=== PATIENT | female | born 1950 | race Caucasian/White ===

== ENCOUNTER → 2020-07-30 13:25 | Outpatient (CLI) | payer MEDICARE, SELFPAY ==
--- NOTE | ~2020-07-30 | XR_ITS ---
XR chest 2V 07/30/2020 14:05 Indication: Follow-up infiltrates of the left lung. Procedure: 2 view chest Comparison: 12/26/2018 Findings: Heart size normal. No focal air space disease, pulmonary edema, pleural effusion or suspect ed pneumothorax. Calcified granuloma left lung base. Impression: 1: No acute cardiopulmonary disease. Reviewed, dictated and finalized at location B. Impression: 1: No acute cardiopulmonary disease.
== END ==
PROVIDERS: PCP Family Medicine; Visit Provider Specialist
DX: R93.89 Abnormal findings on diagnostic imaging of other specified body structures (principal)
CPT/HCPCS: 71046

== ENCOUNTER 2022-11-27 12:44 | Outpatient (CLI) | payer MEDICARE, SELFPAY ==
--- NOTE | 2022-11-27 | ECG_ITS ---
Measurements Intervals Douglas Rate: 67 P: -19 VA: 167 QRS: 5 QRSD: 86 T: 31 QT: 387 QTc: 411 Interpretive Statements SINUS RHYTHM NORMAL ECG COMPARED TO ECG 12/27/2018 15:11:25 PROLONGED QT INTERVAL NO LONGER PRESENT Electronically Signed On 11-27-2022 13:37:03 DIRECTOR [employer] by Israel Crooks D.O.
[2022-11-27 14:00] LABS: Anion Gap 7 mmol/L (8-16); Blood Urea Nitrogen 18 mg/dL (7-17); Calcium 9.1 mg/dL (8.4-10.2); Carbon Dioxide 32 mmol/L (22-30); Chloride 103 mmol/L (98-107); Estimated Glomerular Filt Rate 54; Glucose 106 mg/dL (65-110); Potassium 4.1 mmol/L (3.4-5.0); Sodium 142 mmol/L (137-145)
== END 2022-11-27 12:45 | disposition home or self-care (01) ==
LOC: ANHLAB 13:02
PROVIDERS: PCP Family Medicine; Visit Provider Orthopaedic Surgery
DX: Z01.818 Encounter for other preprocedural examination (principal)
CPT/HCPCS: 36415; 80048; 93005

== ENCOUNTER → 2023-06-13 10:50 | Outpatient (CLI) | payer MEDICARE, SELFPAY ==
--- NOTE | ~2023-06-13 | XR_ITS ---
AP and oblique views of the bilateral ribs Clinical History: Pain Findings: No rib fracture is seen. Osseous alignment is anatomic. Lungs are clear, without focal cons olidation or pleural effusion. Cardiomediastinal contour is within normal limits. Soft tissues are un remarkable. Impression: No rib fracture is seen. Reviewed, dictated and finalized at [facility]. Impression: No rib fracture is seen.
== END ==
PROVIDERS: PCP Family Medicine; Visit Provider Nurse Practitioner Family
DX: R07.81 Pleurodynia (principal); W19.XXXA Unspecified fall, initial encounter
CPT/HCPCS: 71110

== ENCOUNTER 2024-07-01 15:45 | Outpatient (CLI) | payer MEDICARE, SELFPAY ==
[2024-07-01 18:51] LABS: Alanine Aminotransferase 37 U/L (6-35); Albumin Level 4.3 g/dL (3.5-5.1); Alkaline Phosphatase 70 U/L (38-126); Anion Gap 9 mmol/L (4-12); Aspartate Amino Transferase 37 U/L (14-36); Bilirubin,Total 0.5 mg/dL (0.2-1.3); Blood Urea Nitrogen 24 mg/dL (7-17); Calcium 9.2 mg/dL (8.4-10.2); Carbon Dioxide 28 mmol/L (22-30); Chloride 100 mmol/L (98-107); Estimated Glomerular Filt Rate > 60; Glucose 91 mg/dL (65-110); Potassium 4.1 mmol/L (3.4-5.0); Sodium 137 mmol/L (137-145)
[2024-07-01 19:38] LABS: Hepatitis C Virus Antibody Negative (Negative)
[2024-07-01 19:57] LABS: Hemoglobin A1C 5.8 % (<5.7)
== END 2024-07-01 15:46 | disposition home or self-care (01) ==
LOC: ANHGOSHLAB 15:46
PROVIDERS: PCP Family Medicine; Visit Provider Family Medicine
DX: E78.5 Hyperlipidemia, unspecified (principal); I10 Essential (primary) hypertension; R73.03 Prediabetes; Z11.59 Encounter for screening for other viral diseases
CPT/HCPCS: 36415; 80053; 83036; 86803

== ENCOUNTER 2025-05-05 13:35 | Outpatient (CLI) | payer MEDICARE, SELFPAY ==
--- NOTE | ~2025-05-05 | MM_ITS ---
EXAMINATION: MM screening yves BI w beata HISTORY: Screening mammogram TECHNIQUE: Craniocaudal and mediolateral oblique 3-D tomosynthesis images were obtained and synthetic 2-D images were generated. CAD analysis was submitted and interpreted. COMPARISON: 05/18/2015, 09/29/2014 BREAST PARENCHYMAL COMPOSITION:Not Dense. There are scattered areas of fibroglandular density. FINDINGS: There is an ovoid mass at the upper, outer right breast mid to posterior depth. Stable coar se calcification left breast. No suspicious abnormality of the left breast. IMPRESSION: Ovoid mass in the upper, outer right breast. Spot compression views and ultrasound are recommended fo r further evaluation. BI-RADS Category 0: Incomplete: Needs additional imaging evaluation. Reviewed, dictated and finalized at location . IMPRESSION: Ovoid mass in the upper, outer right breast. Spot compression views and ultraso und are recommended for further evaluation. BI-RADS Category 0: Incomplete: Needs additional imaging evaluation.
--- NOTE | ~2025-05-05 | DEXA_ITS ---
Bone Density Report Name: JOSE TRONCOSO Age: 74 Sex: Female Ethnicity: White Date of : 1950 Indication: postmenopausal; screening for osteoporosis; prior fracture; Referring Provider: JAKUB CEJA Study: Bone densitometry was performed. Exam Date: May 05, 2025 Accession number: [id number] Bone Density: Region BMD T-score Z-score Classification AP Spine(L1-L4) 0.942 -1.0 1.5 Normal Femoral Neck (Left) 0.710 -1.3 0.9 Osteopenia Total Hip (Left) 0.922 -0.2 1.7 Normal Femoral Neck (Right) 0.781 -0.6 1.5 Normal Total Hip (Right) 0.988 0.4 2.2 Normal Femoral Neck Mean 0.746 -0.9 1.2 Normal Total Hip Mean 0.955 0.1 1.9 Normal World Health Organization criteria for BMD impression classify patients as: Normal (T-score at or above -1.0), Osteopenia (T-score between -1.0 and -2.5), or Osteoporosis (T-score at or below -2.5). 10-year Fracture Risk(1): Major Osteoporotic Fracture 16% Hip Fracture 2.7% Reported Risk Factors: [place] (), Neck BMD=0.710, BMI=26.0, previous fracture (1) FRAX(R) Version 3.08. Fracture probability calculated for an untreated patient. Fracture probability may be lower if the patient has received treatment. Clinical Information Provided by Patient: Has had a low trauma fracture Has used the following medications: multi Patient maximum height was 67 Menopause Age: 44 Drinks caffeinated beverages Onset of menses at age 11 Number of children 2 Impression: The patient has low bone mass, based on the Left Femoral Neck T-score. The patient has risk factors, including: previous fracture. Discussion: BONE DENSITY IS LOW AT ONE OR MORE SKELETAL SITES. This patient's lowest T-score is low at one or more skeletal sites. It meets the World Health Organization's (WHO) criteria for ?low bone mass? (T-score between -1.0 and -2.5). The patient's 10-year risk of fracture as calculated by FRAX is less than the threshold where pharmacological therapy is recommended by the National Osteoporosis Foundation (NOF). However, all treatment decisions require clinical judgment and consideration of individual patient factors, including patient preferences, comorbidities, previous drug use, risk factors not captured in the FRAX model (e.g., frailty, falls, vitamin D deficiency, increased bone turnover, interval significant decline in bone density) and possible under or overestimation of fracture risk by FRAX. The patient should follow a healthful lifestyle (good nutrition with adequate calcium and vitamin D, and appropriate weight-bearing exercise). Follow-Up: Consider repeating this study in 2 to 3 years to reassess this patient's status, or sooner if there is some new clinical indication. Reported by: AYAH on 05/05/2025 2:15:00 PM. Reviewed, dictated and finalized at location A.
== END 2025-05-05 13:36 | disposition home or self-care (01) ==
LOC: CHSIMG 13:37
PROVIDERS: PCP Family Medicine; Visit Provider Family Medicine
DX: Z12.31 Encounter for screening mammogram for malignant neoplasm of breast (principal); Z78.0 Asymptomatic menopausal state; M85.88 Other specified disorders of bone density and structure, other site
CPT/HCPCS: 77063; 77067; 77080

== ENCOUNTER 2025-05-18 09:38 | Outpatient (CLI) | payer MEDICARE, SELFPAY ==
--- NOTE | ~2025-05-18 | MMUS_ITS ---
EXAMINATION: MM diagnostic yves RT w beata, US breast RT limited HISTORY: Follow-up new right breast mass TECHNIQUE: Additional 3-D tomosynthesis images of the right breast were performed and synthetic 2-D i mages were generated. CAD analysis was submitted and interpreted. High resolution Limited right breas t ultrasound was performed. COMPARISON: Comparison to multiple prior studies sequentially, with oldest reviewed study dated 02/03. BREAST PARENCHYMAL COMPOSITION: Not dense: There are scattered areas of fibroglandular density. FINDINGS: MAMMOGRAPHIC FINDINGS: There is a oval-shaped mass in the upper outer quadrant of the right breast, middle third. This mass cannot be replicated on medial lateral view. There are no suspicious calcifications or architectural distortion. ULTRASOUND: Limited right breast ultrasound: Normal heterogeneous echotexture without focal solid or cystic mass. IMPRESSION: 1. Focal oval shaped mass upper outer quadrant of the right breast, middle third without confirmation on medial lateral view or ultrasound. 2. Further evaluation with MRI of the breast with contrast recommended. BI-RADS Category 0: Incomplete: Needs additional imaging evaluation. Reviewed, dictated and finalized at location A. IMPRESSION: 1. Focal oval shaped mass upper outer quadrant of the right breast, middle thir d without confirmation on medial lateral view or ultrasound. 2. Further evaluation with MRI of the breast with contrast recommended. BI-RADS Category 0: Incomplete: Needs additional imaging evaluation.
--- OUTSIDE RECORDS SUMMARY | 2025-05-18 09:41 | XMS_ITS | Data Portability ---
Author Organization [facility] [employer], Main Office Address [address] [place] [address] Assessment Encounter Date Assessment Date Assessment LastModified by Organization Details LastModified Time 01/11/2023 01/11/2023 Patient returns status post trigger finger release left 3rd. Catching is gone she is neurologically she is intact. She has some aching and scarring and stiffness. I told her that was normal. Recommended just some gentle massage with hand cream that should resolve with time. He does have a trigger finger right 3rd which she may need something done on later. 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 I will refill her prednisone Celebrex for prescription drug management discussed. ines Not available 01/11/2023 13:54:27 Plan of Treatment Reminders Order Date Submit Date Provider Last Modified By Organization Details Last Modified Time Details Appointments None recorded. Lab None recorded. Referral None recorded. Procedures None recorded. Surgeries None recorded. Imaging None recorded. Medication Orders Celebrex 200 mg capsule 2022 023 [email or web address] [facility] [facility], [place], [address], 13:53:27 Patient TargetsNo targets recorded. Patient InstructionsNo instructions recorded. Reason for Referral None Reported. Results Created Date Observation Date Name Description Value Unit Range Abnormal Flag Note LastModifiedBy Organization Detail LastModifiedTime 11/29/19 22 XR, hand, 3 or more view No observ ation record ed. [id number] [place] [address], [place], [address], 01/10/2023 10:51:42 Result Notes None recorded. Problems Name Problem SNOMED Code Status Onset Date Resolution Date Notes Provider Name and Address Organization Details Recorded Time Trigger finger of right hand 9251425303369 9101 Active 2021 Not Available [facility] 3 10:45:13 Partial thickness rotator cuff tear 398021046 Active 2019 Not Available [facility] 3 10:45:13 Osteoarthr itis of joint of hand 39591882 Active 2021 Not Available [facility] 3 10:45:13 Pain in right hand 1769581542467 09 Active 2021 Not Available [facility] 3 10:45:13 Acquired trigger finger of left middle finger 0619859363429 02 Active 2021 Not Available [facility] 3 10:45:13 Acquired trigger finger of right middle finger 2431666818782 05 Active 2021 Not Available [facility] 3 10:45:13 Problem Notes None recorded. Medical Equipment None Reported. Medications Name Sig Start Date Stop Date Status Note LastModified by Organization Details LastModified Time celecoxib 200 mg capsule Take 1 capsule by mouth once daily 2022 active Not Available Not Available Not Avai lable atorvastati n 40 mg tablet TAKE 1 TABLET BY MOUTH ONCE DAILY active Not Available Not Available No t Available prednisone 10 mg tablet TAKE 1 TABLET BY MOUTH THREE TIMES DAILY FOR 3 DAYS THEN 1 TABLET TWICE DAILY FOR 2 DAYS THEN 1 TABLET ONCE DAILY FOR 1 DAY 10/18 completed Not Available Not Available Not Available fluconazole 150 mg tablet 12/07 completed Not Available Not Available Not Available hydrocodone 5 mg-acetamin ophen 325 mg tablet Take 1 tablet every 6 hours by oral route. active Not Available Not Available No t Available phenazopyri dine 200 mg tablet 12/07 completed Not Available Not Available Not Available bupivacaine HCl 0.5 % (5 mg/mL) injection solution Take 20 mg by injection route. 12/07 completed Not Available Not Available Not Available fluorouraci l 5 % topical cream APPLY TO FACE/CHES T TWICE A DAY FOR 10-14 DAYS active Not Available Not Available No t Available ciprofloxac in 500 mg tablet TAKE 1 TABLET BY MOUTH EVERY 12 HOURS 12/07 completed Not Available Not Available Not Available sulfamethox azole 800 mg-trimetho prim 160 mg tablet 03/18 completed Not Available Not Available Not Available triamcinolo ne acetonide 0.1 % topical cream APPLY TO THE AFFECTED AREA(S) THREE TIMES DAILY FOR ITCHY RASH 12/07 completed Not Available Not Available Not Available prednisone 10 mg tablets in a dose pack Take 1 tab by mouth, 3 times a day for 3 daysTake 1 tab by mouth 2 times a day for 2 daysTake 1 tab by mouth once a day for 1 day 10/18 completed Not Available Not Available Not Available Kenalog 10 mg/mL suspension for injection In office injection administe red by the provider 12/07 completed [facility]AM[facility]: [phone] Not Available Not Available Not Available cephalexin 500 mg capsule TAKE 1 CAPSULE BY MOUTH TWICE DAILY FOR 7 DAYS 12/07 completed Not Available Not Available Not Available omeprazole 20 mg capsule,del ayed release Take 1 capsule every day by oral route. 2020 active Not Available Not Available Not Avai lable mupirocin 2 % topical ointment APPLY TO THE AFFECTED AREA(S) (RIGHT UPPER BACK) TWICE DAILY FOR 30 DAYS 12/07 completed Not Available Not Available Not Available metoprolol succinate ER 25 mg tablet,exte nded release 24 hr TAKE 1 TABLET BY MOUTH ONCE DAILY IN THE MORNING active Not Available Not Available No t Available naproxen 500 mg tablet Take 1 tablet twice a day by oral route. 12/07 completed Not Available Not Available Not Available esomeprazol e magnesium 20 mg capsule,del ayed release 10/18 completed Not Available Not Available Not Available Asprin Ec Low Dose 81 mg tablet,dhruv yed release Take 1 tablet every day by oral route. 2020 active Not Available Not Available Not Avai lable ezetimibe 10 mg tablet TAKE 1 TABLET BY MOUTH ONCE DAILY active Not Available Not Available No t Available moxifloxaci n 0.5 % eye drops 03/18 completed Not Available Not Available Not Available nitrofurant oin monohydrate /macrocryst als 100 mg capsule TAKE 1 CAPSULE BY MOUTH EVERY 12 HOURS FOR 7 DAYS. MUST ADMINISTE R WITH A MEAL/FOOD 12/07 completed Not Available Not Available Not Available lidocaine (PF) 10 mg/mL (1 %) injection solution In office injection administe red by the provider 12/07 completed [facility]: [phone] Not Available Not Available Not Available Brilinta 90 mg tablet TAKE 1 TABLET BY MOUTH TWICE DAILY 03/18 completed Not Available Not Available Not Available ropivacaine (PF) 5 mg/mL (0.5 %) injection solution Take 10 mg by injection route. 12/07 completed Not Available Not Available Not Available Vitals Date Recorded Body mass index (BMI) Body height Body weight Provider Name and Address Organization Details Last Updated DateTime 11/29/2021 25.4 kg/m2 170.18 cm 86669.96 g Not Available [facility] 01/10/2023 10:42:50 Date Recorded Body mass index (BMI) Body height Body weight Provider Name and Address Organization Details Last Updated DateTime 12/07/2022 25.1 kg/m2 170.18 cm 86979.78 g Not Available [facility] 01/10/2023 10:42:50 Date Recorded Body mass index (BMI) Body height Body weight Provider Name and Address Organization Details Last Updated DateTime 12/21/2022 25.1 kg/m2 170.18 cm 33974.78 g Not Available [facility] 01/10/2023 10:42:50 Date Recorded Body height Body mass index (BMI) Body weight Provider Name and Address Organization Details Last Updated DateTime 01/11/2023 170.18 cm 25.1 kg/m2 40660.78 g Lisa Alvarez, ATC L [place] [facility] [place] [employer] [facility] 01/11/2023 13:35:05 Date Recorded Body mass index (BMI) Body height Body weight Provider Name and Address Organization Details Last Updated DateTime 05/25/2022 25.7 kg/m2 170.18 cm 56134.15 g Not Available [facility] 01/10/2023 10:42:50 Social History None recorded. Functional Status None recorded. Mental Status None recorded. Family History Relationship Description Onset Age of this Age Resolved Age Notes LastModified by Organization Details LastModified Time Father Family history of malignant neoplasm [id number] Not available 01/10/2023 10:42:15 Mother Chronic obstructive pulmonary disease [id number] Not available 01/10/2023 10:42:15 Medical History Condition Response BLINDNESS N KIDNEY STONES N MRSA N CARPAL TUNNEL SYNDROME N LUNG DISEASE/DISORDER N HISTORY OF DRUG ABUSE N RADIATION / CHEMOTHERAPY N COPD N SPORTS INJURY N ANKLE PAIN N BLOOD DISEASES N SCHIZOPHRENIA N SHINGLES N BOWEL PROBLEMS N SHOULDER PAIN N DEPRESSION (INCLUDING POST ) N STROKE/TIA N KNEE PAIN N ULCERS N BENIGN PROSTATIC HYPERPLASIA N OBESITY N GERD/NAUSEA N ANEURYSM N URINARY/BLADDER/KIDNEY PROBLEMS N CORONARY ARTERY DISEASE (CAD) N ADDICTION CONCERNS N USE OF BLOOD THINNERS N SKIN PROBLEMS N EMPHYSEMA N MUSCLE,JOINT OR BONE PROBLEMS N DVT N STOMACH ULCERS N BLOOD CLOTS N USE OF NSAIDS N CONCUSSION OR SPINAL TRAUMA N NEUROPATHY N AIDS/HIV N FRACTURES N ELBOW PAIN N HYPERTENSION N TOURETTE'S N ANXIETY DISORDER N Metal allergy N BLOOD TRANSFUSION N ANEMIA/BLOOD DISORDER N BIPOLAR DISORDER N BRONCHITIS N OSTEOARTHRITIS N TUBERCULOSIS N FOOT PROBLEM N HEART VALVE DISORDERS N ALLERGIES/HAYFEVER N SOFT TISSUE INJURY N INFECTIOUS DISEASE N HEART ARRHYTHMIA N INSOMNIA N RHEUMATOID ARTHRITIS N HIGH CHOLESTEROL / HYPERLIPIDEMIA N EDEMA N CHRONIC PAIN SYNDROME N CAROTID BLOCKAGE N BACK / NECK PROBLEMS N HAVE YOU BEEN HOSPITALIZED OR SEEN IN [facility] ER IN THE PAST YEAR ? N BURSITIS N HERNIATED DISC N DIALYSIS N FIBROMYALGIA N OSTEOPOROSIS N ARTHRITIS Y NO SIGNIFICANT PAST MEDICAL HISTORY N PERIPHERAL NEUROPATHY N DIABETES, TYPE N HEARTBURN / REFLUX N HEPATITIS / LIVER DISEASE N GOUT N SLEEP DISORDER N ALZHEIMER'S DISEASE N HERPES N SEIZURES/EPILEPSY N HEADACHES/MIGRAINES N VASCULAR DISEASE N HIP PAIN N Blood Disorder N DIZZINESS N HEAD TRAUMA OR INJURY N HEART DISEASE/HEART PROBLEMS Y MULTIPLE SCLEROSIS N CARDIAC ARRHYTHMIA N CANCER: SPECIFY N ANESTHESIA COMPLICATIONS N ATRIAL FIBRILLATION N AUTOIMMUNE DISEASE N Gynecological HistoryNo gynecological history recorded. Obstetrics History GPAL:G 0 P 0 0 0 0 Past Encounters Encounter ID Performer Location Encounter Start Date Encounter Closed Date Diagnosis/Indication Diagnosis SNOMED-CT Code Diagnosis ICD10 Code Diagnosis Note [id number] Nasir Romero MD [facility] [place] [address] [place] [address] 10/18/2021 00:00:00 10/18/2021 15:10:00 [id number] Nasir Romero MD [facility] [place] [address] [place] [address] 11/29/2021 00:00:00 11/29/2021 16:13:19 [id number] Nasir Romero MD [facility] [place] [address] [place] [address] 05/25/2022 00:00:00 05/25/2022 14:03:45 [id number] Nasir Romero MD [facility] [place] [address] [place] [address] 12/07/2022 00:00:00 12/07/2022 11:22:16 [id number] Nasir Romero MD [facility] [place] [address] [place] [address] 12/21/2022 00:00:00 12/21/2022 11:30:44 [id number] Nasir Romero MD [facility] [place] [address] [place] [address] 01/11/2023 13:30:04 01/11/2023 15:06:56 Trigger finger of right hand 8940460795 3098518 M65.332 Pain in right hand 09644 03088 07679 M79.641 Acquired t marble installer finger of left middle finger 7712481960 50843 M65.332 Acquired t marble installer finger of right middle finger 6105512067 06304 M65.331 Osteoarthr itis of joint of hand 17507141 M19.049 Health Concerns Section Related Observation LastModified by Organization Detai ls LastModified Time None Recorded Concern Status LastModified by Organization Details LastModified Time None Recorded Advance Directives Directive None Recorded Payers Insurance Date Sequence Insurance Name Policy Number Policy Cohen Covered Member ID Cohen Member ID Guarantor Name 01/16/2023 1 [employer] (MEDICARE REPLACEMENT/ ADVANTAGE - PPO) [id number] Sindy L Fourdyce [id number] Sindy L Fourdyce 01/16/2023 1 [employer] (PPO) [id number] Sindy L Fourdyce [id number] Sindy L Fourdyce Notes Date Note Type Note Provider Name and Address Organization Details Recorded Time 01/11/2023 text/html Patient returns status post trigger finger left base left 3rd. She remains symptomatic in terms of scarring and inflammation but no triggering and no numbness or tingling. Nasir Romero MD [address] [facility] [place] [address], [place], [address], [facility] 01/11/2023 13:54:42 OBGyn Episode No OBEpisode recorded.
--- OUTSIDE RECORDS SUMMARY | 2025-05-18 09:41 | XMS_ITS | Encounter Summary ---
Author Organization [facility] Address [address] [place] [address] Care Team Providers Care Transportation Associate Name Role Phone Aamir Mishra MD Primary Care Provider Encounter Details Date Type Department Care Team (Late st Contact Info) Description 07/20/2022 Lab Requisition [facility] [address] [place] [address] Ben Garland MD [address] [facility] [place] [address] Social History Tobacco Use Types Packs/Day Years Used Date Smoking Tobacco: Former Cigarettes 0.5 10 Smokeless Tobacco: Never Comments:Passive smoke expos ure from mother as well Comments No Sex and Gender Information Value Date Recorded Sex Assigned at Not on file 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 Gender Identity Not on file Sexual Orientation Not on file documented as of this encounter Plan of Treatment Not on file documented as of this encounter Procedures Procedure Name Priority Date/Time Associated Diagnosis Comments DERMATOPATHOLOGY Routine 07/20/2022 12:0 0 AM CDT documented in this encounter Results * DERMATOPATHOLOGY (07/20/2022 12:00 AM CDT) Case Report Dermatopathology Report Case: [id number] Authorizing Provider: Ben Garland MD Collected: 07/20/2022 12:00 AM Ordering Location: [facility] Received: 07/20/2022 04:12 PM Pathologist: Savanna Interiano MD Specimen: Skin, right upper back 2 2:41 PM [facility] DER[facility]ORAT[facility] Final Diagnosis Specimen A. 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 The 12 to 6 o'clock margin is inked green. The 6 o'clock to 12 o'clock margin is inked black. The 12 o'clock tip is submitted in cassette 1. The 6 o'clock tip is submitted in cassette 2. The remainder of the ellipse is serially sectioned and submitted in cassettes 3-6. Jar 0. 2 2:41 PM [facility] DERMATOPATHOLOGY [facility]ORAT[facility] Microscopic Description Specimen A. SKIN, right upper back: There is a proliferation of melanocytes in the epidermis, with single cells predominating, distributed in an irregular pattern. This lesion is not present at the margin of the specimen. There are fibroblasts and collagen bundles oriented parallel to the skin surface with elongated blood vessels, some of which are oriented perpendicular to the skin surface. 2 2:41 PM [facility] DERMATOPATHOLOGY [facility]ORATORY Disclaimer An external and internal positive and negative controls are appropriate for the histochemical, immunohistochemical and immunofluorescence stain(s) in this case (if any), except where stated explicitly. The performance characteristics of the stain(s) cited in this report were developed and its performance characteristic determined by the Dermatopathology Laboratory at [facility], directed by Dr. Konrad Chandler. These tests need not be, and therefore are not, approved by the [place] Food and Drug Administration. The tests are used for clinical purposes. Billing Codes Specimen Charges Stain Charges 82637 1 2 2:41 PM [facility] DERMATOPATHOLOGY LABORATORY Embedded Images 2 2:41 PM CDT DERMATOPATHOLOGY LABORATORY Pathology/Cytolog y TISSUE SPECIMEN FROM SKIN / Unknown 07/20/2022 07/20/2022 4:12 PM CDT us Ben Garland MD LAB - PATHOLOGY/CYTOLOGY ORDER AMY Final Result DERMATOPATHOLOGY LABORATORY [facility] - Department of Dermatology [facility] [address] [place] [address], [address] [phone] documented in this encounter Visit Diagnoses Not on filedocumented in this encounter Care Teams Transportation Associate Relationship Specialty Start Date End Date Aamir Mishra MD [address] [place] [address] PCP - General Family Medicine 05/03/22 documented as of this encounter
--- OUTSIDE RECORDS SUMMARY | 2025-05-18 09:42 | XMS_ITS | Encounter Summary ---
Author Organization [facility] Address [address] [place] [address] Care Team Providers Care Outsole Compressor Name Role Phone Aamir Mishra MD Primary Care Provider Encounter Details Date Type Department Care Team (Late st Contact Info) Description 06/02/2022 Lab Requisition [facility] [address] [facility] [place] [id number] Ben Garland MD [address] [facility] [place] [address] Social History Tobacco Use Types Packs/Day Years Used Date Smoking Tobacco: Former Cigarettes 0.5 10 Smokeless Tobacco: Never Comments:Passive smoke expos ure from mother as well Comments No Sex and Gender Information Value Date Recorded Sex Assigned at Not on file 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 Gender Identity Not on file Sexual Orientation Not on file documented as of this encounter Plan of Treatment Not on file documented as of this encounter Procedures Procedure Name Priority Date/Time Associated Diagnosis Comments DERMATOPATHOLOGY Routine 06/01/2022 12:0 0 AM CDT documented in this encounter Results * DERMATOPATHOLOGY (06/01/2022 12:00 AM CDT) Case Report Dermatopathology Report Case: [id number] Authorizing Provider: Ben Garland MD Collected: 06/01/2022 12:00 AM Ordering Location: [facility] Received: 06/02/2022 08:39 AM Pathologist: Chai Chandler MD Specimens: A) - Skin, right upper back B) - Skin, right posterior shoulder 2 5:05 PM CDT DERMATOPATHOLOGY LABORATORY Final Diagnosis Specimen A. 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 SKIN, right posterior shoulder: BASAL CELL CARCINOMA, NODULAR TYPE (C44.612) 2 5:05 PM CDT DERMATOPATHOLOGY LABORATORY at 1705 CDT Clinical History A: Lentigo vs. Lentigo Maligna. Path# [id number] B: BCCA. Path# [id number] 2 5:05 PM CDT DERMATOPATHOLOGY LABORATORY Gross Description Specimen A: Received is one formalin filled container labeled with the patient's name and designated right upper back. The specimen consists of a shave biopsy measuring [id number] and another piece of tissue measuring 8l3g3wt. Jar 0. Specimen B: Received is one formalin filled container labeled with the patient's name and designated right posterior shoulder. The specimen consists of a shave biopsy measuring 2k2x2hy. Jar 0. 2 5:05 PM CDT DERMATOPATHOLOGY LABORATORY Microscopic Description Specimen A. SKIN, right upper back: There is a proliferation of melanocytes distributed in an irregular pattern, singly and in nests, at all levels of the epidermis. MART-1/Melan-A highlights the pagetoid spread. This lesion is present at the margin of the specimen. Specimen B. SKIN, right posterior shoulder: Within the dermis there are aggregates of basaloid cells with a high nuclear to cytoplasmic ratio and peripheral palisading. 2 5:05 PM CDT DERMATOPATHOLOGY LABORATORY Disclaimer An external and internal positive and negative controls are appropriate for the histochemical, immunohistochemical and immunofluorescence stain(s) in this case (if any), except where stated explicitly. The performance characteristics of the stain(s) cited in this report were developed and its performance characteristic determined by the Dermatopathology Laboratory at [facility], directed by Dr. Konrad Chandler. These tests need not be, and therefore are not, approved by the [place] Food and Drug Administration. The tests are used for clinical purposes. Billing Codes Specimen Charges Stain Charges 87943 98361 1 1 16281 1 2 5:05 PM CDT DERMATOPATHOLOGY LABORATORY Embedded Images 2 5:05 PM CDT DERMATOPATHOLOGY LABORATORY Pathology/Cytology TISSUE SPECIMEN FROM SKIN / Unknown 06/01/2022 06/02/2022 8:39 AM CDT Miscellaneous samples (specimen) TISSUE SPECIMEN FROM SKIN / Unknown 06/01/2022 06/02/2022 8:39 AM CDT us Ben Garland MD LAB - PATHOLOGY/CYTOLOGY ORDER AMY Final Result DERMATOPATHOLOGY LABORATORY [facility] - Department of Dermatology [facility] Special[facility] Medicine [address] [place] [address] [phone] documented in this encounter Visit Diagnoses Not on filedocumented in this encounter Care Teams Outsole Compressor Relationship Specialty Start Date End Date Aamir Mishra MD [address] [place] [address] PCP - General Family Medicine 05/03/22 documented as of this encounter
--- OUTSIDE RECORDS SUMMARY | 2025-05-18 09:42 | XMS_ITS | Clinical Summary ---
Author Organization [email or web address] Address [address] [place] [address] Care Team Providers Care Verification Clerk Name Role Phone Aamir Mishra MD Primary Care Provider Source Comments [email or web address],non-owned Affiliates and Associated Physician Practices is amultiple site organization consisting of ambulatory clinics and hospital sitesin [place], [place], [place] and [place]. This disclosure is being madepursuant to the Care Everywhere program and may not contain all information available regarding this patient. Last updated 18.[employer] [email or web address] Allergies No known active allergies Medications * Be aware that medications may not be up to date on this document. Alwaysverify current medications with the patient. 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 Gender Identity Not on file Sexual Orientation Not on file Last Filed Vital Signs Vital Sign Reading Time Taken Comments Blood Pressure 122/72 03/07/2018 10:03 AM CDT Pulse 68 03/07/2018 10:03 AM CDT Temperature 37.1 C (98.7 F) 03/07/2018 10:03 AM CDT Respiratory Rate 16 03/07/2018 10:0 3 AM CDT Oxygen Saturation 97% 03/07/2018 10: 03 AM CDT range between 96-98 Inhaled Oxygen Concentration - - Weight 72.6 kg (160 lb) 03/07/2018 10:0 3 AM CDT Height 170.2 cm (5' 7) 03/07/2018 10:0 3 AM CDT Body Mass Index 25.06 03/07/2018 10:03 AM CDT Plan of Treatment Health Maintenance Due Date Last Done Comments COLON MONITORING 1950 COLONOSCOPY - COLON CA SCREENING 1949 CT COLONOGRAPHY - COLON CA SCREENING 1950 FIT - COLON CA SCREENING 1950 FLEX SIG - COLON CA SCREENING 1950 HEPATITIS C SCREENING 07/12/1967 DTAP/TDAP/TD VACCINES (1 - Tdap) 1968 PNEUMOCOCCAL VACCINE 50+ (1 of 1 - PCV) 1999 ZOSTER VACCINE (1 of 2) 1999 COLOGUARD (AGES 45-75) - COLON CA SCREENING 10/12/2023 10/12/2020 Colorectal Cancer Screening 10/12/2023 MAMMOGRAM 05/03/2024 05/03/2022, 03/0 06/2019, 03/02/2017, Additional history exists COVID-19 VACCINE ( season) 2024 Respiratory Syncytial Virus (RSV) Vaccine Pt: or over 60 yrs (1 - 1-dose 75+ series) 2024 DEPRESSION SCREENING 11/12/2024 MEDICARE AWV CALENDAR YEAR 2024 SCREENING FOR DIABETES 11/17/2024 11/17/2021, 2018 INFLUENZA VACCINE (Season Ended) 2025 LIPID TESTING 11/17/2026 11/17/2021, 01/10/2019 BONE DENSITY TESTING Completed 05/03/2022, 01/18/20 19 HEPATITIS B VACCINE Aged Out No longe r eligible based on patient's age to complete this topic HIB VACCINE Aged Out No longer eligi ble based on patient's age to complete this topic HPV VACCINE Aged Out No longer eligi ble based on patient's age to complete this topic MENINGOCOCCAL (Group B) VACCINE SHARED DECISION-MAKING Aged Out No longer eligible based on patient's age to complete this topic MENINGOCOCCAL GROUPS A/C/Y/W VACCINE Aged Out No longer eligible based on patient's age to complete this topic Procedures Procedure Name Priority Date/Time Associated Diagnosis Comments DEXA BONE DENSITY AXIAL SKELETON Routine 05/03/2022 11:13 AM CDT Asymptomatic menopausal state MAMMO BILAT SCREENING W SHAHANA Routine 05/03/2022 10:46 AM CDT Visit for screening mammogram from Last 3 Months or Most Recently Relevant to Health Maintenance Results * DEXA BONE DENSITY AXIAL SKELETON (05/03/2022 11:13 AM CDT) Anatomical Region Laterality Modality Nuclear Medicine 05/03/2022 11:3 7 AM CDT Impressions 05/03/2022 11:38 AM CDT IMPRESSION: Osteopenia of the lumbar spine and left hip. Normal bone mineral density of the right hip. WORLD HEALTH ORGANIZATION DEFINITIONS NORMAL= T-Score at or above -1.0 SD OSTEOPENIA = T-Score between -1 and -2.5 SD OSTEOPOROSIS = T-Score at or below -2.5 SD > Interpreting Provider: Han Bray DO on 05/03/2022 11:38 AM Narrative 05/03/2022 11:38 AM CDT BONE MINERAL DENSITY STUDY: INDICATION: 71-year-old for osteoporosis screening. COMPARISON: Prior study dated 01/17/2019 FINDINGS: The mean bone mineral content of the lumbar spine is 1.037 g/cm2. The T-score is -1.2 consistent with osteopenia. The mean bone mineral content of the left femoral neck is 0.881 g/cm2. The T-score is -1.1 consistent with osteopenia. The mean bone mineral content of the left total hip is 0.969 g/cm2. The T-score is -0.3 consistent with normal bone mineral density. The mean bone mineral content of the right femoral neck is 0.924 g/cm2. The T-score is -0.8 consistent with normal bone mineral density. The mean bone mineral content of the right total hip is 1.029 g/cm2. The T-score is 0.2 consistent with normal bone mineral density. FRAX 10 year fracture risk Major osteoporotic fracture: 9.8% Hip fracture: 1.3% Procedure Note Han Bray DO - 05/03/2022 BONE MINERAL DENSITY STUDY: INDICATION: 71-year-old for osteoporosis screening. COMPARISON: Prior study dated 01/17/2019 FINDINGS: The mean bone mineral content of the lumbar spine is 1.037 g/cm2. The T-score is -1.2 consistent with osteopenia. The mean bone mineral content of the left femoral neck is 0.881 g/cm2. The T-score is -1.1 consistent with osteopenia. The mean bone mineral content of the left total hip is 0.969 g/cm2.The T-score is -0.3 consistent with normal bone mineral density. The mean bone mineral content of the right femoral neck is 0.924 g/cm2. The T-score is -0.8 consistent with normal bone mineral density. The mean bone mineral content of the right total hip is 1.029 g/cm2.The T-score is 0.2 consistent with normal bone mineral density. FRAX 10 year fracture risk Major osteoporotic fracture: 9.8% Hip fracture: 1.3% IMPRESSION: Osteopenia of the lumbar spine and left hip. Normal bone mineral density of the right hip. WORLD HEALTH ORGANIZATION DEFINITIONS NORMAL= T-Score at or above -1.0 SD OSTEOPENIA = T-Score between -1 and -2.5 SD OSTEOPOROSIS = T-Score at or below -2.5 SD > Interpreting Provider: Han Bray DO on 05/03/2022 11:38 AM Ally Monsivais SENIOR PROJECT ARCHITECT-BREAD WRAPPER OPERATOR DEXA ORDERABLES Final R esult * MAMMO BILAT SCREENING W SHAHANA (05/03/2022 10:46 AM CDT) Anatomical Region Laterality Modality Breast Bilateral Mammography 05/03/2022 1:16 PM CDT Impressions 05/03/2022 1:19 PM CDT Annual screening mammography is recommended. OVERALL FINAL ASSESSMENT: BI-RADS CATEGORY 1: NEGATIVE. *Reading Radiologist: Herber Dickey on 05/03/2022 at 1:19 PM Narrative 05/03/2022 1:19 PM CDT EXAMINATION: BILATERAL DIGITAL SCREENING MAMMOGRAM AND BILATERAL BREAST TOMOSYNTHESIS HISTORY: Screening. COMPARISON: January 17, 2019. TECHNIQUE: BILATERAL digital breast tomosynthesis (DBT) and synthetic 2D digital mammogram images were obtained (bilateral craniocaudal and mediolateral oblique projections) including computer aided detection (CAD.) BREAST PARENCHYMAL COMPOSITION:Category B: There are scattered areas of fibroglandular density. MAMMOGRAM FINDINGS: There is no suspicious finding in either breast. Aamir Mishra MD MAMMO ORDERABLES Final Result from Last 3 Months or Most Recently Relevant to Health Maintenance Insurance [id number] MANAGED MEDICARE ADV Member Subscriber Plan / Payer ( fective 2016-Present) Name:Brandy Javierne Relation to Subscriber:Self Name:Sindy Javier Payer ID:[id number] (NAIC) Type:Medicare-JoKno Care Address: [address] MANAGED MEDICARE ADV Care Teams Verification Clerk Relationship Specialty Start Date End Date Aamir Mishra MD [address] [place] [address] PCP - General Family Medicine 05/03/22
--- OUTSIDE RECORDS SUMMARY | 2025-05-18 09:42 | XMS_ITS | Clinical Summary ---
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 Name Role Phone Unavailable Primary Care Provider Unavailabl e Social History Tobacco Use Types Packs/Day Years Used Date Smoking Tobacco: Never Assessed Comments Unknown Sex and Gender Information Value Date Recorded Sex Assigned at Not on file Legal Sex Female 5:48 PM CDT Gender Identity Not on file Sexual Orientation Not on file Plan of Treatment Health Maintenance Due Date Last Done Comments Colorectal Cancer Screening Colonoscopy (10 Years) 1950 Hepatitis C 1967 DTaP, Tdap and Td Vaccines ( 1 - Tdap) 1968 Pneumococcal Vaccine: 50+ Ye ars (1 of 1 - PCV) 1999 Zoster Vaccines (1 of 2) 1999 Dexa Scan (General) 2014 COVID-19 Vaccine ( - 2023-2 5 season) 2024 RSV Immunization or 60+ Years (1 - 1-dose 75+ series) 2024 Meningococcal B Vaccine Aged Out No l onger eligible based on patient's age to complete this topic Meningococcal Vaccine Aged Out No dimitri beata eligible based on patient's age to complete this topic RSV Immunizations Under 20 Months Aged Out No longer eligible based on patient's age to complete this topic
== END 2025-05-18 09:39 | disposition home or self-care (01) ==
LOC: CHSIMG 09:39
PROVIDERS: PCP Family Medicine; Visit Provider Family Medicine
DX: R92.8 Other abnormal and inconclusive findings on diagnostic imaging of breast (principal)
CPT/HCPCS: 76642; 77061; 77065; G0279

== ENCOUNTER 2025-09-01 08:20 | Outpatient (CLI) | payer MEDICARE, SELFPAY ==
--- NOTE | ~2025-09-01 | MM_ITS ---
AutoText: MM stereotactic specimen RT, MM stereotactic bx RT CLINICAL HISTORY: 75-year-old female with suspicious right breast mass with no MRI or ultrasound correlate, presents for stereotactic core needle biopsy procedure. PROCEDURE: Stereotactic breast biopsy. The patient was brought into the stereotactic suite. A time-out procedure was performed. Preliminary images of the right breast were obtained to localize the mass. The area was then prepped and draped in the usual sterile fashion. 1% lidocaine was administered to the superficial soft tissues and 1% lidocaine without epinephrine was administered to the deeper soft tissues for local anesthesia. A essie was made in the skin and the 9 gauge Mammotome biopsy needle was inserted through the essie and localized to the mass with confirmation by mammography. Multiple biopsy specimens were obtained. A microclip was placed in the biopsy site at the end of the procedure. Pressure was held at the site of biopsy and entry site for the needle until hemostasis was achieved. The patient tolerated the procedure well with no immediate post procedure complications. The biopsy specimens were sent to pathology for evaluation. Mammogram of the right breast in the craniocaudal and true lateral projections demonstrate the microclip in the biopsy site. IMPRESSION: Technically successful stereotactic biopsy of right breast mass. The patient tolerated the procedure well with no immediate post procedure complications. Reviewed, dictated and finalized at location B. IMPRESSION: Technically successful stereotactic biopsy of right breast mass. Th e patient tolerated the procedure well with no immediate post procedure complic ations.
--- NOTE | 2025-09-01 11:11 | S_PTH ---
PATIENT: Sindy Javier LOC: [facility] U#:[id number] AGE/SX: 75/F ROOM: RE09/01/[address]: Anika Cortés MD : 1950 BED: DIS: 09/01/2025 SPEC #: [id number] RECD: 09/01/25 11:34 STATUS: ADDISON REBeverly #: [id number] FAUSTO: 09/01/25 11:[address]: Anika Cortés DEPT: [facility] Surgical RECD BY: Kenneth Simpson ENTERED: 09/01/25 11:47 SP TYPE: Surgical OTHR DR: Aamir Mishra MD Tissues: A - Breast Biopsy B - Breast Biopsy C - Breast Biopsy D - Breast Biopsy E - Breast Biopsy F - Breast Biopsy G - Breast Biopsy H - Breast Biopsy I - Breast Biopsy J - Breast Biopsy K - Breast Biopsy L - Breast Biopsy Procedures: P63 Hematoxylin and Eosin Stain Estrogen Receptor Immuno Progestogen Receptor immuno Gross and Microscopic Level 4 CK 5
== END 2025-09-01 08:21 | disposition home or self-care (01) ==
LOC: ANHFOHIMG 08:20
PROVIDERS: PCP Family Medicine; Visit Provider Surgery
DX: R92.8 Other abnormal and inconclusive findings on diagnostic imaging of breast (principal); R92.1 Mammographic calcification found on diagnostic imaging of breast; D05.11 Intraductal carcinoma in situ of right breast; N63.11 Unspecified lump in the right breast, upper outer quadrant; N63.10 Unspecified lump in the right breast, unspecified quadrant
CPT/HCPCS: 19081; 88305; 88342

== ENCOUNTER 2025-09-17 07:16 | Outpatient (CLI) | payer MEDICARE, SELFPAY ==
--- NOTE | ~2025-09-17 | MM_ITS ---
EXAMINATION: MM post biopsy diagnostic RT CLINICAL HISTORY: 75 year old female with biopsy-proven RIGHT breast Malignant lesion containing Cofield Laz clip diagnosed at stereotactic guided core needle biopsy on 09/01/2025. Patient presents for ultrasound guided Magseed localization of the clip within the Malignant lesion in the Upper outer 10:00 right breast. After informed consent was obtained, the patient was brought into the ultrasound room. A time-out procedure was performed. Preliminary images of the right breast were obtained to localize the target. A needle was then placed into the breast and ultrasound images were obtained to confirm position of the needle. The Magseed clip deployed immediately adjacent to the biopsy clip. Postprocedure mammogram of the right breast showed the Magseed in good position. IMPRESSION: Successful ultrasound-guided Magseed localization of right breast cancer. The patient tolerated the procedure well with no immediate post procedure complications. Reviewed, dictated and finalized at location B. RICT RESOURCE OFFICER IMPRESSION: Successful ultrasound-guided Magseed localization of right breast c ancer. The patient tolerated the procedure well with no immediate post procedu re complications.
--- OUTSIDE RECORDS SUMMARY | 2025-09-17 16:20 | XMS_ITS | Clinical Summary ---
Author Organization [facility] Address [facility] [place] [address] Care Team Providers Care Flag Maker Name Role Phone Unavailable Primary Care Provider Unavailabl e Social History Tobacco Use Types Packs/Day Years Used Date Smoking Tobacco: Never Assessed Comments Unknown Sex and Gender Information Value Date Recorded Sex Assigned at Not on file Legal Sex Female 5:48 PM CDT Gender Identity Not on file Sexual Orientation Not on file Plan of Treatment Health Maintenance Due Date Last Done Comments Hepatitis C 1967 DTaP, Tdap and Td Vaccines ( 1 - Tdap) 1968 Pneumococcal Vaccine: 50+ Ye ars (1 of 1 - PCV) 1999 Zoster Vaccines (1 of 2) 1999 Dexa Scan (General) 2014 RSV Immunization or 60+ Years (1 - 1-dose 75+ series) 2024 COVID-19 Vaccine (2024-2 6 season) 2025 Influenza Adult (#1) 2025 Hepatitis A Vaccines Aged Out No long er eligible based on patient's age to complete this topic Meningococcal B Vaccine Aged Out No l onger eligible based on patient's age to complete this topic Meningococcal Vaccine Aged Out No dimitri beata eligible based on patient's age to complete this topic RSV Immunizations Under 20 Months Aged Out No longer eligible based on patient's age to complete this topic
--- OUTSIDE RECORDS SUMMARY | 2025-09-17 16:20 | XMS_ITS | Encounter Summary ---
Author Organization [facility] Address [address] [facility] [place] [address] Care Team Providers Care Director Of Child Welfare Services Name Role Phone Aamir Mishra MD Primary Care Provider Encounter Details Date Type Department Care Team (Late st Contact Info) Description 07/20/2022 Lab Requisition [facility] [address] [facility] [place] [address] Ben Garland MD [address] [facility] [place] [address] Social History Tobacco Use Types Packs/Day Years Used Date Smoking Tobacco: Former Cigarettes 0.5 10 Smokeless Tobacco: Never Comments:Passive smoke expos ure from mother as well Comments No Sex and Gender Information Value Date Recorded Sex Assigned at Not on file 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 Gender Identity Not on file Sexual Orientation Not on file documented as of this encounter Plan of Treatment Not on file documented as of this encounter Procedures Procedure Name Priority Date/Time Associated Diagnosis Comments DERMATOPATHOLOGY Routine 07/20/2022 12:0 0 AM CDT documented in this encounter Results * DERMATOPATHOLOGY (07/20/2022 12:00 AM CDT) Case Report Dermatopathology Report Case: [id number] Authorizing Provider: Ben Garland MD Collected: 07/20/2022 12:00 AM Ordering Location: [facility] Received: 07/20/2022 04:12 PM Pathologist: Savanna Interiano MD Specimen: Skin, right upper back 2 2:41 PM [facility] Final Diagnosis Specimen A. SKIN, right upper back: MELANOMA IN SITU (D03.59) NOT PRESENT AT MARGIN DERMAL SCAR (L90.5) 2 2:41 PM [facility] at 1441 CDT Clinical History Biopsy proven MM in situ, Check margins.Path#[id number] 2 2:41 PM [facility] Gross Description Specimen A: Received is one formalin filled container labeled with the patient's name and designated right upper back.The specimen consists of an ellipse measuring [id number] mm and is oriented with the suture/notch [...] cassettes 3-6. Jar 0. 2 2:41 PM [facility] Microscopic Description Specimen A. SKIN, [...] to the skin surface. 2 2:41 PM [facility] Disclaimer An external and internal positive and negative controls are appropriate for the histochemical, immunohistochemical and immunofluorescence stain(s) in this case (if any), except where stated explicitly. The performance characteristics of the stain(s) cited in this report were developed and its performance characteristic determined by the Dermatopathology Laboratory at [facility], directed by Dr. Konrad Chandler. These tests need not be, and therefore are not, approved by the [place] Food and Drug Administration. The tests are used for clinical purposes. Billing Codes Specimen Charges Stain Charges 49827 1 2 2:41 PM CDT DERMATOPATHOLOGY LABORATORY Embedded Images 2:41 PM CDT DERMATOPATHOLOGY LABORATORY Pathology/Cytolog y TISSUE SPECIMEN FROM SKIN / Unknown 07/20/2022 07/20/2022 4:12 PM CDT us Ben Garland MD LAB - PATHOLOGY/CYTOLOGY ORDER AMY Final Result DERMATOPATHOLOGY LABORATORY [facility] - Department of Dermatology Specialized Medicine [address] [place] [address], [address] [phone] documented in this encounter Visit Diagnoses Not on filedocumented in this encounter Care Teams Director Of Child Welfare Services Relationship Specialty Start Date End Date Aamir Mishra MD [address] [place] [address] PCP - General Family Medicine 05/03/22 documented as of this encounter
--- OUTSIDE RECORDS SUMMARY | 2025-09-17 16:20 | XMS_ITS | Encounter Summary ---
Author Organization [facility] Address [address] [place] [address] Care Team Providers Care Sash Repairer Name Role Phone Aamir Mishra MD Primary Care Provider Encounter Details Date Type Department Care Team (Late st Contact Info) Description 06/02/2022 Lab Requisition [facility] DermPath Lab [address] [place] [address] Ben Garland MD [address] [facility] [address] Social History Tobacco Use Types Packs/Day Years Used Date Smoking Tobacco: Former Cigarettes 0.5 10 Smokeless Tobacco: Never Comments:Passive smoke expos ure from mother as well Comments No Sex and Gender Information Value Date Recorded Sex Assigned at Not on file 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.] History A: Lentigo vs. Lentigo Maligna. Path# [id number] B: BCCA. Path# [id number] 2 5:05 PM CDT DERMATOPATHOLOGY LABORATORY Gross Description Specimen A: Received is one formalin filled container labeled with the patient's name and designated right upper back. The specimen consists of a shave biopsy measuring [id number] and another piece of tissue measuring [id number]. Jar 0. Specimen B: Received is one formalin filled container labeled with the patient's name and designated right posterior shoulder. The specimen consists of a shave biopsy measuring [id number]. Jar 0. 2 5:05 PM CDT DERMATOPATHOLOGY [...] characteristic determined by the Dermatopathology Laboratory at [facility], directed by Dr. Konrad Chandler. These tests need not be, and therefore are not, approved by the [place] Food and Drug Administration. The tests are used for clinical purposes. Billing Codes Specimen Charges Stain Charges 05416 64351 1 1 90649 1 2 5:05 PM CDT DERMATOPATHOLOGY LABORATORY Embedded Images 2 5:05 PM CDT DERMATOPATHOLOGY LABORATORY Pathology/Cytology TISSUE SPECIMEN FROM SKIN / Unknown 06/01/2022 06/02/2022 8:39 AM CDT Miscellaneous samples (specimen) TISSUE SPECIMEN FROM SKIN / Unknown 06/01/2022 06/02/2022 8:39 AM CDT us Ben Garland MD LAB - PATHOLOGY/CYTOLOGY ORDER AMY Final Result DERMATOPATHOLOGY LABORATORY [facility] Department of Dermatology [facility] Medicine [address] [place] [address], [address] [phone] documented in this encounter Visit Diagnoses Not on filedocumented in this encounter Care Teams Sash Repairer Relationship Specialty Start Date End Date Aamir Mishra MD [address] [place] [address] PCP - General Family Medicine 05/03/22 documented as of this encounter
--- OUTSIDE RECORDS SUMMARY | 2025-09-17 16:21 | XMS_ITS | Clinical Summary ---
Author Organization [facility] Address [address] [facility] [place] [address] Care Team Providers Care Personal Financial Planner Name Role Phone Aamir Mishra MD Primary Care Provider Source Comments [facility],non-owned Affiliates and Associated Physician Practices is amultiple site organization consisting of ambulatory clinics and hospital sitesin [place] and [place]. This disclosure is being madepursuant to the Care Everywhere program and may not contain all information available regarding this patient. Last updated 18.[facility] Allergies No known active allergies Medications * Be aware that medications may not be up to date on this document. Alwaysverify current medications with the patient. No known medications Encounters Date Type Department Care Team Description 08/03/2025 Telephone [facility] Breast Care [address] [place] [address] [address] [place] [address] Tim Lainez, RN Results 07/29/2025 2:55 PM CDT - 07/29/2025 11:59 PM CDT Hospital Encounter [facility] - Outside Imaging Discharge Disposition: Home or Self Care 07/29/2025 2:49 PM CDT - 07/29/2025 2:54 PM CDT Hospital Encounter [facility] - Outside Imaging Discharge Disposition: Home or Self Care 07/29/2025 2:26 PM CDT - 07/29/2025 2:48 PM CDT Hospital Encounter [facility] - Outside Imaging Discharge Disposition: Home or Self Care 07/29/2025 1:15 PM CDT - 07/29/2025 2:25 PM CDT Hospital Encounter [facility] Imaging Services - MRI [address] [place] [address] Nate Mishra MD Discharge Disposition: Home or Self Care from Last 3 Months Family History Medical History Relation Name Comments [...] on file 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 Gender Identity Not on file Sexual Orientation [...] Health Maintenance Due Date Last Done Comments HEPATITIS C SCREENING 07/12/1967 DTAP/TDAP/TD VACCINES (1 - Tdap) 1968 PNEUMOCOCCAL VACCINE 50+ (1 of 1 - PCV) 1999 ZOSTER VACCINE (1 of 2) 1999 SCREENING FOR DIABETES 03/07/2018 Respiratory Syncytial Virus (RSV) Vaccine Pt: or over 60 yrs (1 - 1-dose 75+ series) 2024 DEPRESSION SCREENING 11/12/2024 MEDICARE AWV CALENDAR YEAR 2024 COVID-19 VACCINE ( - 2024- season) 2025 09/05/2023, 09/19/2022, 05/06/2022, Additional history exists INFLUENZA VACCINE (#1) 2025 BONE DENSITY TESTING Completed 05/03/2022, 01/18/20 19 [...] Procedure Name Priority Date/Time Associated Diagnosis Comments MAMMO SCREENING OUTSIDE Routine 07/29/2025 2:56 PM CDT US BREAST RIGHT OUTSIDE Routine 07/29/2025 2:52 PM CDT MM OUTSIDE MAMMOGRAM RIGHT Routine 07/29/2025 2:43 PM CDT MRI BREAST BILAT WWO CONTRAST Routine 07/29/2025 2:40 PM CDT Other abnormal and inconclusive findings on diagnostic imaging of breast DEXA BONE DENSITY AXIAL SKELETON Routine 05/03/2022 11:13 AM CDT Asymptomatic menopausal state from Last 3 Months or Most Recently Relevant to Health Maintenance Results * Mammo Screening Outside (07/29/2025 2:56 PM CDT) Narrative [facility] - 07/29/2025 2:57 PM CDT This is a study from an outside facility that has been uploaded into PACS. us Provider Digitize IMAGING Final Result Performing Organization Address City/[facility]/ZIP Co de Phone Number [facility] [address] [place] [address] * US Breast Right Outside (07/29/2025 2:52 PM CDT) Narrative [facility] - 07/29/2025 2:52 PM CDT This is a study from an outside facility that has been uploaded into PACS. us Provider Digitize IMAGING Final Result [facility] [address] [place] [address] * MM Outside Mammogram Right (07/29/2025 2:43 PM CDT) Narrative [facility] - 07/29/2025 2:44 PM CDT This is a study from an outside facility that has been uploaded into PACS. us Provider Dig[employer]ize IMAGING Final Result Performing Organization Address City/State/[facility] Co de Phone Number [facility] [address] [place] [address] * MRI Breast Bilat Wwo Contrast (07/29/2025 2:40 PM CDT) Anatomical Region Laterality Modality Breast Bilateral Magnetic Resonan ce 07/29/2025 4:03 PM CDT Impressions 07/31/2025 10:52 AM CDT IMPRESSION: There is no suspicious enhancement in either breast. Specifically, there is no suspicious enhancement to correlate with the reported new mass seen mammographically only on the outside facility diagnostic mammogram performed May 18, 2025. RECOMMENDATION: Given that the right breast mass, only seen mammographically, is described as new, right breast stereotactic guided core needle biopsy utilizing a prone stereotactic unit is recommended. The patient will be contacted by nurse navigator Tim Lainez who will facilitate scheduling the patient's biopsy appointment. OVERALL FINAL ASSESSMENT: BI-RADS Category 1: Negative. > Interpreting Provider: Herber Dickey MD on 07/31/2025 10:52 AM Narrative 07/31/2025 10:52 AM CDT EXAMINATION: 1. MRI EXAMINATION OF THE BREASTS WITH AND WITHOUT CONTRAST 2. 3D POST PROCESSING ON A DEDICATED 3D WORKSTATION HISTORY: 75-year-old reportedly asymptomatic woman presents for bilateral breast MRI for further evaluation of a screen detected right breast mass which was evaluated at an outside facility with diagnostic mammogram May 18, 2025. The outside facility report describes there is a oval-shaped mass in the upper outer quadrant of the right breast, middle third. This mass cannot be replicated on medial lateral view. By report there was no ultrasound correlate. Further evaluation with breast MRI was recommended. DATE OF LAST MENSTRUAL PERIOD: Postmenopausal TECHNIQUE: MRI examination of the breasts per breast tumor protocol with and without gadolinium contrast. A dedicated breast imaging coil was used. The images were transferred to a breast CAD system for 3D post processing and contrast kinetics analysis. CONTRAST: Dotarem, 15 ml COMPARISON: There is no breast MRI available for comparison. Correlation is made to the patient's outside facility mammograms dating back to 2016. BREAST COMPOSITION: Scattered fibroglandular tissue BACKGROUND PARENCHYMAL ENHANCEMENT: Moderate FINDINGS: RIGHT BREAST: There is no suspicious enhancement. LEFT BREAST: There is no suspicious enhancement. No abnormally enlarged lymph nodes are identified in the visualized portions of either axilla. us Aamir Mishra MD MR ORDERABLES Final Result * DEXA BONE DENSITY AXIAL SKELETON (05/03/2022 [...] DO on 05/03/2022 11:38 AM Ally Monsivais DIRECTOR DERMATOLOGY-MACHINERY DISMANTLER DEXA ORDERABLES Final R esult from Last 3 Months or Most Recently Relevant to Health Maintenance Insurance MEDICARE AETNA MEDICARE ADV SELF PAY NO INSURANCE Member Subscriber Plan / Payer (Ef fective for All Dates) Name:Jose Javier Member ID:Not on file Relation to Subscriber:Not on file Name:JOSE JAVIER Subscriber ID:Not on file (Home) Address: [address] [place] [address] Payer ID:Not on file Group ID:Not on file Type:Self Pay Address: [place], [place] [facility] MANAGED MEDICARE ADV Care Teams Personal Financial Planner Relationship Specialty Start Date End Date Aamir Mishra MD [address] [place] [address] PCP - General Family Medicine 05/03/22
== END 2025-09-17 07:17 | disposition home or self-care (01) ==
LOC: ANHFOHIMG 07:18
PROVIDERS: PCP Family Medicine; Visit Provider Surgery
DX: D05.11 Intraductal carcinoma in situ of right breast (principal)
CPT/HCPCS: 19285; 77065; A4648

== ENCOUNTER 2025-09-25 15:13 | Outpatient (CLI) | payer MEDICARE, SELFPAY ==
--- NOTE | 2025-09-25 15:20 | ECG_ITS ---
Test Date: 2025-09-25 15:29:08 Measurements Intervals [place] Rate: 71 P: 36 NC: 178 QRS: -4 QRSD: 94 T: 26 QT: 380 QTc: 414 Interpretive Statements SINUS RHYTHM POSSIBLE ANTERIOR MYOCARDIAL INFARCTION Electronically Signed On 09-26-2025 10:50:00 STUDENT DEVELOPMENT SPECIALIST by Chuck Stovall D.O
--- OUTSIDE RECORDS SUMMARY | 2025-09-25 19:46 | XMS_ITS | Clinical Summary ---
Author Organization [facility] Address [address] [facility] [place] [address] Care Team Providers Care Web Consultant Name Role Phone Aamir Mishra MD Primary Care Provider Source Comments [facility],non-owned Affiliates and Associated Physician Practices is amultiple site organization consisting of ambulatory clinics and hospital sitesin [place], [place], [place] and [place]. This disclosure is being madepursuant to the Care Everywhere program and may not contain all information available regarding this patient. Last updated 18.[facility] Allergies No known active allergies Medications * Be aware that medications may not be up to date on this document. Alwaysverify current medications with the patient. No known medications Encounters Date Type Department Care Team Description 08/03/2025 Telephone [facility] Breast Care [address] [place] [address] [address] [place] [address] Tim Lainez, RN Results 07/29/2025 2:55 PM CDT - 07/29/2025 11:59 PM CDT Hospital Encounter [facility] - Outside Imaging Discharge Disposition: Home or Self Care 07/29/2025 2:49 PM CDT - 07/29/2025 2:54 PM CDT Hospital Encounter [facility] - Outside Imaging Discharge Disposition: Home or Self Care 07/29/2025 2:26 PM CDT - 07/29/2025 2:48 PM CDT Hospital Encounter [facility] - Outside Imaging Discharge Disposition: Home or Self Care 07/29/2025 1:15 PM CDT - 07/29/2025 2:25 PM CDT Hospital Encounter [facility] Imaging Services - MRI [address] [place] [address] Nate Mishra MD Discharge Disposition: Home or [...] on file 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 us Provider Digitize IMAGING Final Result Performing Organization Address City/[facility]/ZIP Co de Phone Number [facility] [address] [place] [address] * US Breast Right Outside (07/29/2025 2:52 PM CDT) Narrative [facility] - 07/29/2025 2:52 PM CDT This is a study from an outside facility that has been uploaded into PACS. us Provider Digitize IMAGING Final Result [facility] [address] [place] [address] * MM Outside Mammogram Right (07/29/2025 2:43 PM CDT) Narrative [facility] - 07/29/2025 2:44 PM CDT This is a study from an outside facility that has been uploaded into PACS. us Provider Dig[employer]ize IMAGING Final Result Performing Organization Address City/State/[facility] Co de Phone Number [facility] [address] [place] [address] * MRI Breast Bilat Wwo Contrast (07/29/2025 [...] DO on 05/03/2022 11:38 AM Ally Monsivais UNHAIRING MACHINE OPERATOR-SERVICE WORKER DEXA ORDERABLES Final R esult from Last 3 Months or Most Recently Relevant to Health Maintenance Insurance MEDICARE AETNA MEDICARE ADV SELF PAY NO INSURANCE Member Subscriber Plan / Payer (Ef fective for All Dates) Name:Jose Javier Member ID:Not on file Relation to Subscriber:Not on file Name:JOSE JAVIER Subscriber ID:Not on file (Home) Address: [address] [place] [address] Payer ID:Not on file Group ID:Not on file Type:Self Pay Address: [place], [place] [facility] MANAGED MEDICARE ADV Care Teams Web Consultant Relationship Specialty Start Date End Date Aamir Mishra MD [address] [place] [address] PCP - General Family Medicine 05/03/22
--- OUTSIDE RECORDS SUMMARY | 2025-09-25 19:46 | XMS_ITS | Clinical Summary ---
Author Organization [facility] Address [facility] [place] [address] Care Team Providers Care Lactation Nurse Name Role Phone Unavailable Primary Care Provider [...]
--- OUTSIDE RECORDS SUMMARY | 2025-09-25 19:46 | XMS_ITS | Encounter Summary ---
Author Organization [facility] Address [address] [facility] [place] [address] Care Team Providers Care Pre Owned Sales Manager Name Role Phone Aamir Mishra MD Primary Care Provider Encounter Details Date Type Department Care Team (Late st Contact Info) Description 07/20/2022 Lab Requisition [facility] DermPath Lab [address] [place] [address] Ben Garland MD [address] [facility] [place] [address] Social History Tobacco Use Types Packs/Day Years Used Date Smoking Tobacco: Former Cigarettes 0.5 10 Smokeless Tobacco: Never Comments:Passive smoke expos ure from mother as well Comments No Sex and Gender Information Value Date Recorded Sex Assigned at Not on file Legal 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 Female 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/DRIVER Gender Identity Not on file Sexual Orientation Not on file documented as of this encounter Plan of Treatment Not on file documented as of this encounter Procedures Procedure Name Priority Date/Time Associated Diagnosis Comments DERMATOPATHOLOGY Routine 07/20/2022 12:0 0 AM CDT documented in this encounter Results * DERMATOPATHOLOGY (07/20/2022 12:00 AM CDT) Case Report Dermatopathology Report Case: [id number] Authorizing Provider: Ben Garland MD Collected: 07/20/2022 12:00 AM Ordering Location: [facility] DermPath Lab Received: 07/20/2022 04:12 PM Pathologist: Savanna Interiano MD Specimen: Skin, right upper back 2 2:41 PM [facility] DERMATOPATHOLOGY LABORATORY Final Diagnosis Specimen A. 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 Jar 0. 2 2:41 PM [facility] DERMATOPATHOLOGY LABORATORY Microscopic Description Specimen A. SKIN, [...] to the skin surface. 2 2:41 PM [facility] DERMATOPATHOLOGY LABORATORY Disclaimer An external and internal positive and negative controls are appropriate for the histochemical, immunohistochemical and immunofluorescence stain(s) in this case (if any), except where stated explicitly. The performance characteristics of the stain(s) cited in this report were developed and its performance characteristic determined by the Dermatopathology Laboratory at [facility], directed by Dr. Konrad Chandler. These tests need not be, and therefore are not, approved by the [place] Food and Drug Administration. The tests are used for clinical purposes. Billing Codes Specimen Charges Stain Charges 56979 1 2 2:41 PM CDT DERMATOPATHOLOGY LABORATORY Embedded Images 2:41 PM CDT DERMATOPATHOLOGY LABORATORY Pathology/Cytolog y TISSUE SPECIMEN FROM SKIN / Unknown 07/20/2022 07/20/2022 4:12 PM CDT us Ben Garland MD LAB - PATHOLOGY/CYTOLOGY ORDER AMY Final Result DERMATOPATHOLOGY LABORATORY [facility] - Department of Dermatology [facility] Specialized Medicine [address] [place] [address], [address] Floor [address] [phone] documented in this encounter Visit Diagnoses Not on filedocumented in this encounter Care Teams Pre Owned Sales Manager Relationship Specialty Start Date End Date Aamir Mishra MD [address] [place] [address] PCP - General Family Medicine 05/03/22 documented as of this encounter
--- OUTSIDE RECORDS SUMMARY | 2025-09-25 19:46 | XMS_ITS | Encounter Summary ---
Author Organization [facility] Address [address] [facility] [place] [address] Care Team Providers Care Narrow Fabric Calenderer Name Role Phone Aamir Mishra MD Primary Care Provider Encounter Details Date Type Department Care Team (Late st Contact Info) Description 06/02/2022 Lab Requisition [facility] DermPath Lab [address] [facility] [place] [address] Ben Garland MD [address] [facility] [place] [address] Social History Tobacco Use Types Packs/Day Years Used Date Smoking Tobacco: Former Cigarettes 0.5 10 Smokeless Tobacco: Never Comments:Passive smoke expos ure from mother as well Comments No Sex and Gender Information Value Date Recorded Sex Assigned at Not on file 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 Gender Identity Not on file Sexual Orientation Not on file documented as of this encounter Plan of Treatment Not on file documented as of this encounter Procedures Procedure Name Priority Date/Time Associated Diagnosis Comments DERMATOPATHOLOGY Routine 06/01/2022 12:0 0 AM CDT documented in this encounter Results * DERMATOPATHOLOGY (06/01/2022 12:00 AM CDT) Case Report Dermatopathology Report Case: [id number] Authorizing Provider: Ben Garland MD Collected: 06/01/2022 12:00 AM Ordering Location: [facility] DermPath Lab Received: 06/02/2022 08:39 AM Pathologist: [...] History A: Lentigo vs. Lentigo Maligna. Path# [id number] B: BCCA. Path# [id number] 2 5:05 PM CDT DERMATOPATHOLOGY LABORATORY Gross Description Specimen A: Received is one formalin filled container labeled with the patient's name and designated right upper back. The specimen consists of a shave biopsy measuring 03p7r6ps and another piece of tissue measuring 3n2k4ct. Jar 0. Specimen B: Received is one formalin filled container labeled with the patient's name and designated right posterior shoulder. The specimen consists of a shave biopsy measuring 1l3l1tb. Jar 0. 2 5:05 PM CDT DERMATOPATHOLOGY [...] determined by the Dermatopathology Laboratory at [facility], directed by Dr. Konrad Chandler. These tests need not be, and therefore are not, approved by the [place] Food and Drug Administration. The tests are used for clinical purposes. Billing Codes Specimen Charges Stain Charges 87651 49798 1 1 78658 1 2 5:05 PM CDT DERMATOPATHOLOGY LABORATORY Embedded Images 2 5:05 PM CDT DERMATOPATHOLOGY LABORATORY Pathology/Cytology TISSUE SPECIMEN FROM SKIN / Unknown 06/01/2022 06/02/2022 8:39 AM CDT Miscellaneous samples (specimen) TISSUE SPECIMEN FROM SKIN / Unknown 06/01/2022 06/02/2022 8:39 AM CDT us Ben Garland MD LAB - PATHOLOGY/CYTOLOGY ORDER AMY Final Result DERMATOPATHOLOGY LABORATORY [facility] - Department of Dermatology [facility] Medicine [address] [place] [address], [address] Floor [address] [phone] documented in this encounter Visit Diagnoses Not on filedocumented in this encounter Care Teams Narrow Fabric Calenderer Relationship Specialty Start Date End Date Aamir Mishra MD [address] [place] [address] PCP - General Family Medicine 05/03/22 documented as of this encounter
== END 2025-09-25 15:14 | disposition home or self-care (01) ==
LOC: ANHSURGERY 15:17
PROVIDERS: PCP Family Medicine; Visit Provider Surgery
DX: I25.10 Atherosclerotic heart disease of native coronary artery without angina pectoris (principal); R94.31 Abnormal electrocardiogram [ECG] [EKG]
CPT/HCPCS: 93005

== ENCOUNTER 2025-09-29 00:53 | Day surgery (SDC) | payer MEDICARE, SELFPAY ==
[2025-09-18 13:12] VITALS: BMI 25.4
--- NOTE | 2025-09-18 13:24 | PC.NURSE ---
[facility] has started construction of its new state of the art ER which will open Spring 2026. With this, we anticipate parking may be a challenge for some our surgical patients and families. Parking spaces are limited but are available for all Surgical, obstetrics, and ER patients sharing this lot. If you arrive and find you are having a hard time finding a parking space, please note that we understand the challenges, please drive around the hospital and park near Hospital Entrance 1. When you enter this entrance, you can ask a volunteer to direct or take you back to the surgical waiting area to check in. We appreciate everyone?s understanding of these expected challenges while we build for your future. Report to the Outpatient Waiting Room, entrance under the green pavilion located off [address], at time _0600_ on date _[id number]_. Planned Procedure Time: _0730_.? Time changes happen often and if your time is changed the preop area will call you the afternoon before. - You and your visitor will be asked to self-screen and do not enter if you have any COVID symptoms. Please call surgeon if you need to reschedule. - A mask is optional within the hospital at this time. Patients may have clear liquids (water, carbonated beverages, clear teas, apple juice) until 3 hours prior to surgery with a maximum of 20 ounces. - No food from midnight until time of surgery and no smoking, or chewing tobacco (or any form of nicotine). No chewing gum, candy or mints. Take only the following medications with a SIP of water on the morning of surgery: __Metoprolol____ DO NOT STOP ANY OF YOUR OTHER PRESCRIPTION MEDICATIONS PRIOR TO SURGERY EXCEPT THE FOLLOWING Hold all vitamins and supplements for 3 days per anesthesiologist. Medications to discontinue per physician Date to take last dose Please no make-up, nail malay, hairspray, perfume, deodorant, or body powder the day of surgery.? No jewelry (including any body piercings) or valuables the day of surgery, leave them at home.? Please take a shower or bath the night before, or the morning of, surgery with an antibacterial soap.? Wear comfortable, loose fitting clothing.? - Jewelry must be removed prior to entering the operating room.? Rings and piercings that are not removed may be cut off. - The hospital will not accept responsibility for valuables.? - Please leave all valuables, including medications, at home the day of surgery. If you are going home after surgery, a licensed production truck driver must drive you home.? - NO public transportation without another adult if you receive anesthesia. - We recommend that an adult stay with you for 24 hours following discharge. - We also recommend that you do not drive, make important decision, drink alcoholic beverages, or take any drugs that were not prescribed by your health care provider for at least 24 hours after your discharge time. Follow any additional instructions given to you from your surgeon. Telephone instructions given to __Diane___and asked if any additional questions and then verbalized understanding. Patient advised to call surgeon office or pre surgery nurse liaison [phone] if any additional questions.
[2025-09-29] VITALS (7 sets, daily range): BP systolic 115–163; BP diastolic 62–86; PULSE 58–80; RESP 12–20; TEMP 36.1–36.2; O2SAT 96–100; BMI 26.2
--- NOTE | ~2025-09-29 | MM_ITS ---
MM_FAXITRON_MG 09/29/2025 10:46 Indication: Postsurgical biopsy specimen Procedure: Specimen radiograph of the right breast Comparison: 09/17/2025 Findings: Specimen contains tissue marker from previous biopsy. In addition, there is a magseed adjacent to the tissue marker contained in the specimen. Please refer to procedural report for details. Impression: 1: Specimen radiograph contains magseed an tissue marker from previous biopsy. Reviewed, dictated and finalized at location O. UNITY DEVELOPMENT SPECIALIST Impression: 1: Specimen radiograph contains magseed an tissue marker from previous biopsy.
--- OUTSIDE RECORDS SUMMARY | 2025-09-29 02:48 | XMS_ITS | Encounter Summary ---
Author Organization [facility] Address [address] [facility] [place] [address] Care Team Providers Care Reel Tender Name Role Phone Aamir Mishra MD Primary Care Provider Encounter Details Date Type Department Care Team (Late st Contact Info) Description 07/20/2022 Lab Requisition [facility] DermPath Lab [address] [facility] [place] [address] Ben Garland MD [address] [facility] [address] Social History Tobacco Use Types Packs/Day Years Used Date Smoking Tobacco: Former Cigarettes 0.5 10 Smokeless Tobacco: Never Comments:Passive smoke expos ure from mother as well Comments No Sex and Gender Information Value Date Recorded Sex Assigned at Not on file 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 Gender Identity Not on file Sexual Orientation Not on file documented as of this encounter Plan of Treatment Not on file documented as of this encounter Procedures Procedure Name Priority Date/Time Associated Diagnosis Comments DERMATOPATHOLOGY Routine 07/20/2022 12:0 0 AM CDT documented in this encounter Results * DERMATOPATHOLOGY (07/20/2022 12:00 AM CDT) Case Report Dermatopathology Report Case: [id number] Authorizing Provider: Ben Garland MD Collected: 07/20/2022 12:00 AM Ordering Location: [facility] DermPath Lab Received: 07/20/2022 04:12 PM Pathologist: Savanna Interiano MD Specimen: Skin, right upper back 2 2:41 PM [facility] DERMAT[facility]Y [facility]ORAT[facility] Final Diagnosis Specimen A. 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 Jar 0. 2 2:41 PM [facility]ERMAT[facility] Microscopic Description Specimen A. [...] to the skin surface. 2 2:41 PM [facility]ERMAT[facility]ORAT[facility] Disclaimer An external and internal positive and negative controls are appropriate for the histochemical, immunohistochemical and immunofluorescence stain(s) in this case (if any), except where stated explicitly. The performance characteristics of the stain(s) cited in this report were developed and its performance characteristic determined by the Dermatopathology Laboratory at [facility], directed by Dr. Konrad Chandler. These tests need not be, and therefore are not, approved by the [place] Food and Drug Administration. The tests are used for clinical purposes. Billing Codes Specimen Charges Stain Charges 77825 1 2 2:41 PM CDT DERMATOPATHOLOGY LABORATORY Embedded Images 2:41 PM CDT DERMATOPATHOLOGY LABORATORY Pathology/Cytolog y TISSUE SPECIMEN FROM SKIN / Unknown 07/20/2022 07/20/2022 4:12 PM CDT us Ben Garland MD LAB - PATHOLOGY/CYTOLOGY ORDER AMY Final Result DERMATOPATHOLOGY LABORATORY [facility] - Department of Dermatology [facility] [address] [place] [address], [address] [phone] documented in this encounter Visit Diagnoses Not on filedocumented in this encounter Care Teams Reel Tender Relationship Specialty Start Date End Date Aamir Mishra MD [address] [place] [address] PCP - General Family Medicine 05/03/22 documented as of this encounter
--- OUTSIDE RECORDS SUMMARY | 2025-09-29 02:48 | XMS_ITS | Data Portability ---
Author Organization [facility], Main Office Address [address] [place] [address] Assessment Encounter Date Assessment Date Assessment LastModified [...] 200 mg capsule 2022 023 zuleikacoleman [address] [facility], [address] [facility], [place], [address], 13:53:27 Patient TargetsNo targets recorded. Patient InstructionsNo instructions recorded. Reason for Referral None Reported. Results Created Date Observation Date Name Description Value Unit Range Abnormal Flag Note LastModifiedBy Organization Detail LastModifiedTime 11/29/19 22 XR, hand, 3 or more view No observ ation record ed. [id number] [address], [place], [address], 01/10/2023 10:51:42 Result Notes None recorded. Problems Name Problem SNOMED Code Status Onset Date Resolution Date Notes Provider Name and Address Organization Details Recorded Time Partial thickness rotator cuff tear 989087240 Active 2019 Not Available [facility] 10:45:13 Trigger finger of right hand 6907592059537 9101 Active 2021 Not Available [facility] 10:45:13 Osteoarthr itis of joint of hand 15832150 Active 2021 Not Available [facility] 10:45:13 Pain of right hand 4699462241124 09 Active 2021 Not Available [facility] 3 10:45:13 Acquired trigger finger of left middle finger 9441419983361 02 Active 2021 Not Available [facility] 3 10:45:13 Acquired trigger finger of right middle finger 2355708017443 05 Active 2021 Not Available [facility] 3 10:45:13 Problem Notes None recorded. Medical [...] administe red by the provider 12/[address] [facility]: 0003- 0494- 20 Not Available Not Available [...] administe red by the provider 12/[address] [facility]: 0409- 4276- 17 Not Available Not Available [...] Updated DateTime 11/29/2021 25.4 kg/m2 170.18 cm 74543.96 g Not Available [facility] 01/10/2023 10:42:50 Date Recorded Body mass index (BMI) Body height Body weight Provider Name and Address Organization Details Last Updated DateTime 12/07/2022 25.1 kg/m2 170.18 cm 37571.78 g Not Available [facility] 01/10/2023 10:42:50 Date Recorded Body mass index (BMI) Body height Body weight Provider Name and Address Organization Details Last Updated DateTime 12/21/2022 25.1 kg/m2 170.18 cm 38075.78 g Not Available [facility] 01/10/2023 10:42:50 Date Recorded Body height Body mass index (BMI) Body weight Provider Name and Address Organization Details Last Updated DateTime 01/11/2023 170.18 cm 25.1 kg/m2 05965.78 g Lisa Alvarez, ATC L [facility] 01/11/2023 13:35:05 Date Recorded Body mass index (BMI) Body height Body weight Provider Name and Address Organization Details Last Updated DateTime 05/25/2022 25.7 kg/m2 170.18 cm 61666.15 g Not Available [facility] 01/10/2023 10:42:50 Social History None recorded. Functional Status None recorded. Mental Status None recorded. Family History Relationship Description Onset Age of this Age Resolved Age Notes LastModified by Organization Details LastModified Time Father Family history of malignant neoplasm [id number] Not available 01/10/2023 10:42:15 Mother Chronic obstructive pulmonary disease [id number] Not available 01/10/2023 10:42:15 Medical History Condition Response BLINDNESS N KIDNEY STONES N CARPAL TUNNEL SYNDROME N MRSA N LUNG DISEASE/DISORDER N HISTORY OF DRUG ABUSE N RADIATION / CHEMOTHERAPY N COPD N ANKLE PAIN N SPORTS INJURY N BLOOD DISEASES N SCHIZOPHRENIA N SHINGLES N DEPRESSION (INCLUDING POST ) N BOWEL PROBLEMS N SHOULDER PAIN N STROKE/TIA N ULCERS N KNEE PAIN N BENIGN PROSTATIC HYPERPLASIA N OBESITY N GERD/NAUSEA N ANEURYSM N URINARY/BLADDER/KIDNEY PROBLEMS N CORONARY ARTERY DISEASE (CAD) N ADDICTION CONCERNS N USE OF BLOOD THINNERS N SKIN PROBLEMS N EMPHYSEMA N MUSCLE,JOINT OR BONE PROBLEMS N DVT N STOMACH ULCERS N BLOOD CLOTS N USE OF NSAIDS N CONCUSSION OR SPINAL TRAUMA N NEUROPATHY N AIDS/HIV N FRACTURES N HYPERTENSION N ELBOW PAIN N TOURETTE'S N Metal allergy N ANXIETY DISORDER N BLOOD TRANSFUSION N ANEMIA/BLOOD DISORDER N BIPOLAR DISORDER N BRONCHITIS N OSTEOARTHRITIS N TUBERCULOSIS N FOOT PROBLEM N HEART VALVE DISORDERS N ALLERGIES/HAYFEVER N SOFT TISSUE INJURY N INFECTIOUS DISEASE N HEART ARRHYTHMIA N INSOMNIA N HIGH CHOLESTEROL / HYPERLIPIDEMIA N RHEUMATOID ARTHRITIS N EDEMA N CHRONIC PAIN SYNDROME N CAROTID BLOCKAGE N BACK / NECK PROBLEMS N HAVE YOU BEEN HOSPITALIZED OR SEEN IN [facility] ER IN THE PAST YEAR ? N BURSITIS N HERNIATED DISC N DIALYSIS N FIBROMYALGIA N OSTEOPOROSIS N ARTHRITIS Y NO SIGNIFICANT PAST MEDICAL HISTORY N PERIPHERAL NEUROPATHY N DIABETES, TYPE N HEARTBURN / REFLUX N HEPATITIS / LIVER DISEASE N GOUT N ALZHEIMER'S DISEASE N SLEEP DISORDER N HERPES N HEADACHES/MIGRAINES N SEIZURES/EPILEPSY N VASCULAR DISEASE N Blood Disorder N HIP PAIN N DIZZINESS N HEAD TRAUMA OR INJURY N HEART DISEASE/HEART PROBLEMS Y MULTIPLE SCLEROSIS N CANCER: SPECIFY N CARDIAC ARRHYTHMIA N ANESTHESIA COMPLICATIONS N ATRIAL FIBRILLATION N AUTOIMMUNE DISEASE N Gynecological HistoryNo gynecological history recorded. Obstetrics History GPAL:G 0 P 0 0 0 0 Past Encounters Encounter ID Performer Location Encounter Start Date Encounter Closed Date Diagnosis/Indication Diagnosis SNOMED-CT Code Diagnosis ICD10 Code Diagnosis IMO Codes Diagnosis Note [id number] Nasir Romero MD [facility] [address] [facility] [address] [place] [address] 10/18/2021 00:00:00 10/18/2021 15:10:00 [id number] Nasir Romero MD [facility] [address] [place] [address] 11/29/2021 00:00:00 11/29/2021 16:13:19 [id number] Nasir Romero MD [facility] [address] [place] [address] 05/25/2022 00:00:00 05/25/2022 14:03:45 [id number] Nasir Romero MD [facility] [address] [place] [address] 12/07/2022 00:00:00 12/07/2022 11:22:16 [id number] Nasir Romero MD [facility] [address] [place] [address] 12/21/2022 00:00:00 12/21/2022 11:30:44 [id number] Nasir Romero MD [facility] [address] [place] [address] 01/11/2023 13:30:04 01/11/2023 15:06:56 Trigger finger of right hand 8837174960 5606749 M65.332 Pain of right hand 87288 98741 48901 M79.641 Acquired t safe and vault installer finger of left middle finger 0208122959 70270 M65.332 Acquired t safe and vault installer finger of right middle finger 3130461767 41733 M65.331 Osteoarthr itis of joint of hand 68987102 M19.049 Health Concerns Section Related Observation LastModified by Organization Detai ls LastModified Time None Recorded Concern Status LastModified by Organization Details LastModified Time None Recorded Advance Directives Directive None Recorded Payers Insurance Date Sequence Insurance Name Policy Number Policy Cohen Covered Member ID Cohen Member ID Guarantor Name 01/16/2023 1 [employer] (MEDICARE REPLACEMENT/ ADVANTAGE - PPO) [id number] Sindy L Fourdyce [id number] Sindy L Fourdyce 01/16/2023 1 [employer] (PPO) [id number] Sindy L Fourdyce [id number] Sindy L Fourdyce Notes Date Note Type Note Provider Name and Address Organization Details Recorded Time 01/11/2023 text/html Patient returns status post trigger finger left base left 3rd. She remains symptomatic in terms of scarring and inflammation but no triggering and no numbness or tingling. Nasir Romero MD [address] [place] [address], [place], [address], [facility] 01/11/2023 13:54:42 OBGyn Episode No OBEpisode recorded.
--- OUTSIDE RECORDS SUMMARY | 2025-09-29 02:49 | XMS_ITS | Clinical Summary ---
Author Organization [facility] Address [facility] [place] [address] Care Team Providers Care Cooperer Name Role Phone Unavailable Primary Care Provider [...]
--- OUTSIDE RECORDS SUMMARY | 2025-09-29 02:49 | XMS_ITS | Encounter Summary ---
Author Organization [facility] Address [address] [facility] [place] [address] Care Team Providers Care Skills Instructor Name Role Phone Aamir Mishra MD Primary Care Provider Encounter Details Date Type Department Care Team (Late st Contact Info) Description 06/02/2022 Lab Requisition [facility] DermPath Lab [address] 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 Gender Identity Not on file Sexual Orientation Not on file documented as of this encounter Plan of Treatment Not on file documented as of this encounter Procedures Procedure Name Priority Date/Time Associated Diagnosis Comments DERMATOPATHOLOGY Routine 06/01/2022 12:0 0 AM CDT documented in this encounter Results * DERMATOPATHOLOGY (06/01/2022 12:00 AM CDT) Case Report Dermatopathology Report Case: [id number] Authorizing Provider: Ben Garland MD Collected: 06/01/2022 12:00 AM Ordering Location: [facility] DermPath Lab Received: 06/02/2022 08:39 AM [...] History A: Lentigo vs. Lentigo Maligna. Path# [id number] B: BCCA. Path# [id number] 2 5:05 PM CDT DERMATOPATHOLOGY LABORATORY Gross Description Specimen A: Received is one formalin filled container labeled with the patient's name and designated right upper back. The specimen consists of a shave biopsy measuring 66o4k3eh and another piece of tissue measuring 0b1g1qt. Jar 0. Specimen B: Received is one formalin filled container labeled with the patient's name and designated right posterior shoulder. The specimen consists of a shave biopsy measuring 7n0q9tu. Jar 0. 2 5:05 PM CDT DERMATOPATHOLOGY [...] determined by the Dermatopathology Laboratory at [facility], directed by Dr. Konrad Chandler. These tests need not be, and therefore are not, approved by the [place] Food and Drug Administration. The tests are used for clinical purposes. Billing Codes Specimen Charges Stain Charges 39406 04700 1 1 43067 1 2 5:05 PM CDT DERMATOPATHOLOGY LABORATORY Embedded Images 2 5:05 PM CDT DERMATOPATHOLOGY LABORATORY Pathology/Cytology TISSUE SPECIMEN FROM SKIN / Unknown 06/01/2022 06/02/2022 8:39 AM CDT Miscellaneous samples (specimen) TISSUE SPECIMEN FROM SKIN / Unknown 06/01/2022 06/02/2022 8:39 AM CDT us Ben Garland MD LAB - PATHOLOGY/CYTOLOGY ORDER AMY Final Result DERMATOPATHOLOGY LABORATORY [facility] - Department of Dermatology [facility] Medicine [address] [place] [address], [address] [phone] documented in this encounter Visit Diagnoses Not on filedocumented in this encounter Care Teams Skills Instructor Relationship Specialty Start Date End Date Aamir Mishra MD [address] [place] [address] PCP - General Family Medicine 05/03/22 documented as of this encounter
--- OUTSIDE RECORDS SUMMARY | 2025-09-29 02:50 | XMS_ITS | Clinical Summary ---
Author Organization [facility] Address [address] [facility] [place] [address] Care Team Providers Care Branch Account Executive Name Role Phone Aamir Mishra MD Primary Care Provider Source Comments [facility],non-owned Affiliates and Associated Physician Practices is amultiple site organization consisting of ambulatory clinics and hospital sitesin [place], [place], [place] and [place]. This disclosure is being madepursuant to the Care Everywhere program and may not contain all information available regarding this patient. Last updated 18.[facility] Allergies No known active allergies Medications * Be aware that medications may not be up to date on this document. Alwaysverify current medications with the patient. No known medications Encounters Date Type Department Care Team Description 08/03/2025 Telephone [facility] Breast Care [address] [place] [address] [address] [place] [address] iTm Lainez, RN Results 07/29/2025 2:55 PM CDT - 07/29/2025 11:59 PM CDT Hospital Encounter [facility] - Outside Imaging Discharge Disposition: Home or Self Care 07/29/2025 2:49 PM CDT - 07/29/2025 2:54 PM CDT Hospital Encounter [facility] - Outside Imaging Discharge Disposition: Home or Self Care 07/29/2025 2:26 PM CDT - 07/29/2025 2:48 PM CDT Hospital Encounter [facility] - Outside Imaging Discharge Disposition: Home or Self Care 07/29/2025 1:15 PM CDT - 07/29/2025 2:25 PM CDT Hospital Encounter [facility] Imaging Services - MRI [address] [place] [address] Nate Mishra MD Discharge Disposition: Home or [...] on file 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 us Provider [employer] IMAGING Final Result Performing Organization Address City/[facility]/ZIP Co de Phone Number [facility] [address] [place] [address] * US Breast Right Outside (07/29/2025 2:52 PM CDT) Narrative [facility] - 07/29/2025 2:52 PM CDT This is a study from an outside facility that has been uploaded into PACS. us Provider [employer] IMAGING Final Result [facility] [address] [place] [address] * MM Outside Mammogram Right (07/29/2025 2:43 PM CDT) Narrative [facility] - 07/29/2025 2:44 PM CDT This is a study from an outside facility that has been uploaded into PACS. us Provider [employer] IMAGING Final Result Performing Organization Address City/State/[facility] Co de Phone Number [facility] [address] [place] [address] * MRI Breast Bilat Wwo Contrast (07/29/2025 [...] DO on 05/03/2022 11:38 AM Ally Monsivais MANNEQUIN WIG MAKER-NURSING PROJECT COORDINATOR DEXA ORDERABLES Final R esult from Last 3 Months or Most Recently Relevant to Health Maintenance Insurance MEDICARE [employer] MEDICARE ADV SELF PAY NO INSURANCE Member Subscriber Plan / Payer (Ef fective for All Dates) Name:Jose Javier Member ID:Not on file Relation to Subscriber:Not on file Name:JOSE JAVIER Subscriber ID:Not on file (Home) Address: [address] [place] [address] Payer ID:Not on file Group ID:Not on file Type:Self Pay Address: [place], [place] [facility] MANAGED MEDICARE ADV Care Teams Branch Account Executive Relationship Specialty Start Date End Date Aamir Mishra MD [address] [place] [address] PCP - General Family Medicine 05/03/22
[2025-09-29] MEDS: ACETAMINOPHEN 500 MG TABLET 1000 MG PO (06:45)
[2025-09-29] MEDS: LACTATED RINGERS 1,000 ML 30 ML IV CONT (06:45)
--- NOTE | 2025-09-29 06:45 | WPDANESEPPF ---
Anes - Initial Pre Proc Eval Procedure: Operation Date: 09/29/25 07:30 Proposed Procedures p Right Breast Lumpectomy with Mag Seed Localization, Possible Adjacent Tissue Transfer - Anika Cortés MD Date/Time: 09/29/25 06:45 Surgeon: Anika Cortés MD Pre Op Diagnosis: intraductal carcinoma in situ right breast Patient Data Age: 75 Gender: F Height: 1.7 m Weight: 73.6 kg Allergies Allergy/AdvReac Type Severity Reaction Status Date / Time adhesive tape Allergy Mild Rash Verified 09/18/25 13:40 sulfamethoxazole (From Allergy Mild rash/itchin Verified 09/18/25 13:11 Bactrim) g trimethoprim (From Bactrim) Allergy Mild rash/itchin Verified 09/18/25 13:11 g Home Medications ?Medication ?Instructions ?Recorded ?Confirmed ?Type aspirin 81 mg tablet,delayed 81 mg PO DAILY 05/24/21 09/18/25 History release (Adult Low Dose Aspirin) metoprolol succinate 25 mg 25 mg PO DAILY 05/24/21 09/18/25 History tablet,extended release 24 hr atorvastatin 40 mg tablet 40 mg PO QHS 10/18/21 09/18/25 History loratadine 10 mg tablet (Claritin) 10 mg PO DAILY PRN allergy symptoms 10/18/21 09/18/25 History omeprazole 20 mg capsule,delayed 20 mg PO DAILY 10/18/21 09/18/25 History release ezetimibe 10 mg tablet 10 mg PO DAILY 04/23/23 09/18/25 History fluticasone propionate 50 2 spray intranasal DAILY PRN 10/31/23 09/18/25 History mcg/actuation nasal allergy symptoms spray,suspension multivitamin 1 tablet PO DAILY 05/07/25 09/18/25 History Patient hx anesthesia problems: none Family hx anesthesia problems: none Results Review: All pre-operative results and documents have been reviewed as part of the pre-operative evaluation. [facility] Past Medical History Medical History Synovial cyst of popliteal space [Rock], left knee Prediabetes Rib injury Trigger finger of both hands Osteopenia Seasonal allergies CAD (coronary artery disease) (~12/2018) Dyslipidemia History of mammogram 1998 GERD (gastroesophageal reflux disease) Osteoarthritis Heart attack Heart disease Surgical History Surgical History History of cataract surgery (~2020) b/l S/P trigger finger release (~11/2022) left hand middle finger Hx of heart artery stent (~12/2018) H/O colonoscopy 10/31 Cologuard Family History Family History Mother , Age 88 COPD (chronic obstructive pulmonary disease) Father , Age 69 Pancreatic cancer Grandparent , Age 48 Cerebrovascular accident Social History Social History (Updated 08/20/25 @ 09:57 by Nasima Mejia [facility]) Social History: Pt states that she drinks 3 cups of caffeine daily. Smoking packs per day: 1 Smoking cigarettes per day: 20.0 Years smoked: 10 Smoking pack-years: 10.00 Smoking status: Former smoker Tobacco type: cigarettes Smoking end date: 09/18/77 Additional smoking assessment comments: Pt states that she quit smoking at the age of 27. Alcohol intake: current Drinks per week: 10 Alcohol use details: States she has 1-2 wine/beer daily. Substance use: former Substance use type: marijuana Do You Feel Safe in your Home?: Yes Lack of Transportation: No Lack of Food: Never True Current Housing: I Have Housing Concerned About Future Housing: No Difficulty Paying Gas/Electric Bills: No Difficulty Paying for Meds: No Currently Unemployed: No Education: Master's Degree or Higher Difficulty w/ Childcare or Family Care: No Living arrangements: with family Additional living arrangements comments: Occupation/Education: retired Gender identity (if verbalized by the patient): Female Sexual Orientation (if Verbalized by the Patient): Straight or Heterosexual Spiritual care concerns: No Agree to blood products: Yes Anes - Eval Final PreProcedure Day of Procedure 09/29/25 06:45 Patient weight: overweight Heart: regular rate and rhythm Lungs: clear to auscultation Airway: Mallampati scale class II Neurological: alert and oriented Last oral intake: >/= 8 hours ASA classification: III Emergent: no Anesthetic plan: proceed Anesthesia type and monitoring: general GIVS and standard monitoring Results Review: All pre-operative results and documents have been reviewed as part of the pre-operative evaluation. Informed Consent: The patient's anesthetic plan and its attendant risks and benefits were discussed with the patient/family/POA. Questions were solicited and answers provided to the satisfaction of the patient/family/POA.
--- NOTE | 2025-09-29 07:01 | WPDHPUPDATE1 ---
History and Physical Update Update Date/Time: 09/29/25 07:01 - Right lumpectomy with magseed localization, possible adjacent tissue transfer. History and Physical has been reviewed, including an updated exam of the patient. There are NO changes in the patient's condition. Risks, benefits, and alternatives have been discussed and questions answered. Patient agrees to proceed with procedure.
[2025-09-29] MEDS: ceFAZolin 2 GM in SODIUM CHLORIDE 0.9% IV 50 ML 100 ML IVPB (07:26)
[2025-09-29] MEDS: BUPIVACAINE/EPINEPHRINE 0.5% 50 ML VIAL 10 ML INFILTRATE (07:45)
--- NOTE | 2025-09-29 08:18 | S_PTH ---
PATIENT: Sindy Javier LOC: [facility] U#:[id number] AGE/SX: 75/F ROOM: RE09/29/[address]: Anika Cortés MD : 1950 BED: DIS: 09/29/2025 SPEC #: [id number] RECD: 09/29/25 08:20 STATUS: ADDISON REBeverly #: [id number] FAUSTO: 09/29/25 08:[address]: Anika Cortés DEPT: [facility] Surgical RECD BY: Kenneth Simpson ENTERED: 09/29/25 08:20 SP TYPE: Surgical OTHR DR: Amair Mishra MD Tissues: A - Breast Lumpectomy Procedures: P63 Hematoxylin and Eosin Stain CD68 Gross and Microscopic Level 5 CD45 CK 5
--- NOTE | 2025-09-29 08:44 | P.OP_ITS ---
Procedure Note - Detailed Date of Procedure 09/29/25 Pre-op Diagnosis intraductal carcinoma in situ right breast Post-op Diagnosis Same Procedure Performed Right breast lumpectomy with magseed localization Surgeon Anika Cortés MD Anesthesia MAC Description of Procedure Patient was identified in the pre-operative area and brought to the OR suite. She underwent tumor localization previously by IR with magseed placement. She was laid supine in the operating table and sequential compression devices were applied. General anesthesia was induced without difficulties. The right chest was prepped and draped in a sterile fashion. The sentimag probe was used to identify the area where the magseed was placed and a superior lateral incision was made. Dissection was carried down through the subcutaneous tissue into the breast tissue. The area of concern was identified using sentimag probe, and a rim of normal breast tissue was excised along with the magseed and biopsy marker as our lumpectomy specimen. Once the specimen was completely excised, it was oriented using surgical paint according to retail department supervisor instructions. The specimen was placed in the faxitron and 2 radiographs were obtained and sent to Radiology for radiographic confirmation of Tumor, biopsy marker and magseed within the center of specimen. Once the radiographic confirmation was received, the wound was irrigated with saline and hemostasis was assured. The deep dermal layer was approximated using interrupted 3-0 vicryl followed by 4-0 monocryl for the skin. Dermabond was applied followed by a surgical bra. Patient was awoken from anesthesia and taken to the recovery area in stable condition. All needles, instruments and sponge counts were correct as reported by the operating room staff. Patient tolerated the procedure well with no immediate complications. Estimated Blood Loss 10 Pathology Yes Complications No immediate complications Condition Stable Disposition PACU [facility] Billing Surgery - Charge Forward: Surgery Billing ()
[2025-09-29] MEDS: oxyCODONE HCL (*CRX) 5 MG TAB IR PO (09:39)
== END 2025-09-29 10:15 | disposition home or self-care (01) ==
PROVIDERS: PCP Family Medicine; Visit Provider Surgery
PROC: (CPT 19301; principal; 2025-09-29 07:30)
DX: D05.11 Intraductal carcinoma in situ of right breast (principal); N60.21 Fibroadenosis of right breast; N60.81 Other benign mammary dysplasias of right breast
CPT/HCPCS: 19301; 76098; 88307; 88342; J0690; A9270; C1713; J1100; J2003; J2405; J2704; J3010; J7120

== ENCOUNTER 2025-10-29 14:28 | Outpatient (CLI) | payer MEDICARE, SELFPAY ==
--- OUTSIDE RECORDS SUMMARY | 2025-10-29 13:30 | XMS_ITS | Encounter Summary ---
Author Organization [facility] [employer] [facility] Address [address] [place] [address] Care Team Providers Care Salesperson Burial Plots Name Role Phone Bekah Delgado MD Primary Care Provider + Encounter Details Date Type Department Care Team (Late st Contact Info) Description 10/29/2025 1:30 PM ACCESS SERVICE REPRESENTATIVE Office Visit [facility] Oncology and Hematology - Nick [address] [place] [address] [facility] [address] [place] [address] Sekou Boyle MD [address] [facility] [address] [place] [address] Ductal carcinoma in situ (DCIS) of right breast (Primary Dx) Social History Tobacco Use Types Packs/Day Years Used Date Smoking Tobacco: Former Cigarettes 1 8 1 12/30/1971 - 10/29/1980 Smokeless Tobacco: Never Alcohol Use Standard Drinks/Week Comments Yes 0 (1 standard drink = 0.6 oz pur e alcohol) 2 glass on wine daily Comments Unknown Sex and Gender Information Value Date Recorded Sex Assigned at Not on file Legal Sex Female 5:40 AM ACCESS SERVICE REPRESENTATIVE Gender Identity Not on file Sexual Orientation Not on file documented as of this encounter Last Filed Vital Signs Vital Sign Reading Time Taken Comments Blood Pressure 129/73 10/29/2025 1:41 PM ACCESS SERVICE REPRESENTATIVE Pulse 62 10/29/2025 1:38 PM ACCESS SERVICE REPRESENTATIVE Temperature 36.7 C (98.1 F) 10/29/2025 1:38 PM ACCESS SERVICE REPRESENTATIVE Respiratory Rate 15 10/29/2025 1:38 PM ACCESS SERVICE REPRESENTATIVE Oxygen Saturation 96% 10/29/2025 1:38 PM ACCESS SERVICE REPRESENTATIVE Inhaled Oxygen Concentration - - Weight 77.2 kg (170 lb 3.2 oz) 10/29/2025 1:38 P M ACCESS SERVICE REPRESENTATIVE Height 170.2 cm (5' 7) 10/29/2025 1:38 PM ACCESS SERVICE REPRESENTATIVE Body Mass Index 26.66 10/29/2025 1:38 PM ACCESS SERVICE REPRESENTATIVE documented in this encounter Plan of Treatment Upcoming Encounters Date Type Department Care Team (Late st Contact Info) Description 11/03/2025 4:00 PM ACCESS SERVICE REPRESENTATIVE Telephone Check Up [facility] Oncology and Hematology - Nick [address] [place] [address] Vamshi Fonseca MD [address] [place] [address] 02/16/2026 11:15 AM CDT Office Visit [facility] Oncology and Hematology [facility] [address] [place] [address] Sekou Boyle MD [address] [facility] [place] [address] Scheduled Orders Name Type Priority Associated Diagnoses Orde r Schedule CBC WITH DIFFERENTIAL Lab Stat Ductal carcinoma in situ (DCIS) of right breast Expected: 10/29/2025, Expires: 10/29/2026 COMPREHENSIVE METABOLIC PANEL Lab Stat Ductal carcinoma in situ (DCIS) of right breast Expected: 10/29/2025, Expires: 10/29/2026 documented as of this encounter Visit Diagnoses Diagnosis Ductal carcinoma in situ (DCIS) of right breast- Primary documented in this encounter Care Teams Salesperson Burial Plots Relationship Specialty Start Date End Date Bekah Delgado MD PCP - General 11/04/08 documented as of this encounter
[2025-10-29 14:47] LABS: Hematocrit 40.9 % (37.0-47.0); Hemoglobin 13.2 g/dL (12.0-15.0); Immature Granulocyte Percent A 0.2 % (0-0.5); Lymphocytes Absolute Auto 2.11 K/mm3 (0.9-3.2); Mean Corpuscular HGB Conc 32.3 g/dl (32-36); Mean Corpuscular Hemoglobin 29.5 pg (26-34); Mean Corpuscular Volume 91.5 fl (80-100); Nucleated Red Blood Cells Absolute Auto 0.000 K/mm3 (0.0-0.012); Nucleated Red Blood Cells Perc 0.0 % (0.0-0.2); Platelet Count Result 276 k/mm3 (150-375); Red Blood Count 4.47 M/mm3 (4.2-5.4); White Blood Count 6.6 K/mm3 (4.5-10.0)
--- OUTSIDE RECORDS SUMMARY | 2025-10-29 15:31 | XMS_ITS | Encounter Summary ---
Author Organization [facility] Address [address] [facility] [place] [address] Care Team Providers Care Nuclear Medicine Chief Technologist Name Role Phone Aamir Mishra MD Primary Care Provider Encounter Details Date Type Department Care Team (Late st Contact Info) Description 07/20/2022 Lab Requisition [facility] DermPath Lab [address] [place] [address] Ben Garland MD [address] [facility] [place] [address] Social History Tobacco Use Types Packs/Day Years Used Date Smoking Tobacco: Former Cigarettes 0.5 10 Smokeless Tobacco: Never Comments:Passive smoke expos ure from mother as well Comments No Sex and Gender Information Value Date Recorded Sex Assigned at Not on file Legal Sex Female 5:56 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 Gender Identity Not on file Sexual Orientation Not on file documented as of this encounter Plan of Treatment Not on file documented as of this encounter Procedures Procedure Name Priority Date/Time Associated Diagnosis Comments DERMATOPATHOLOGY Routine 07/20/2022 12:0 0 AM CDT documented in this encounter Results * DERMATOPATHOLOGY (07/20/2022 12:00 AM CDT) Case Report Dermatopathology Report Case: [id number] Authorizing Provider: Ben Garland MD Collected: 07/20/2022 12:00 AM Ordering Location: [facility] DermPath Lab Received: 07/20/2022 04:12 PM Pathologist: Savanna Interiano MD Specimen: Skin, right upper back 2 2:41 PM [facility] DERMATOPATHOLOGY LABORATORY Final Diagnosis Specimen A. 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 Jar 0. 2 2:41 PM [facility] DERMATOPATHOLOGY LABORATORY Microscopic Description Specimen A. SKIN, [...] to the skin surface. 2 2:41 PM [facility] DERMATOPATHOLOGY LABORATORY Disclaimer An external and internal positive and negative controls are appropriate for the histochemical, immunohistochemical and immunofluorescence stain(s) in this case (if any), except where stated explicitly. The performance characteristics of the stain(s) cited in this report were developed and its performance characteristic determined by the Dermatopathology Laboratory at [facility], directed by Dr. Konrad Chandler. These tests need not be, and therefore are not, approved by the [place] Food and Drug Administration. The tests are used for clinical purposes. Billing Codes Specimen Charges Stain Charges 51067 1 2 2:41 PM CDT DERMATOPATHOLOGY LABORATORY Embedded Images 2:41 PM CDT DERMATOPATHOLOGY LABORATORY Pathology/Cytolog y TISSUE SPECIMEN FROM SKIN / Unknown 07/20/2022 07/20/2022 4:12 PM CDT us Ben Garland MD LAB - PATHOLOGY/CYTOLOGY ORDER AMY Final Result DERMATOPATHOLOGY LABORATORY [facility] - Department of Dermatology [facility] Specialized Medicine [address] [place] [address], [address] [phone] documented in this encounter Visit Diagnoses Not on filedocumented in this encounter Care Teams Nuclear Medicine Chief Technologist Relationship Specialty Start Date End Date Aamir Mishra MD [address] [place] [address] PCP - General Family Medicine 05/03/22 documented as of this encounter
--- OUTSIDE RECORDS SUMMARY | 2025-10-29 15:31 | XMS_ITS | Clinical Summary ---
Author Organization [facility] Address [address] [facility] [place] [address] Care Team Providers Care Front Office Clerk Name Role Phone Aamir Mishra MD Primary Care Provider Source Comments [facility],non-[facility] Affiliates and Associated Physician Practices is amultiple site organization consisting of ambulatory clinics and hospital sitesin [place], [place], [place] and [place]. This disclosure is being madepursuant to the Care Everywhere program and may not contain all information available regarding this patient. Last updated 18.[facility] Allergies No known active allergies Medications * Be aware that medications may not be up to date on this document. Alwaysverify current medications with the patient. 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 Gender Identity Not on file Sexual Orientation [...] AWV CALENDAR YEAR 2024 COVID-19 VACCINE ( season) 2025 09/05/2023, 09/19/2022, 05/06/2022, Additional history [...] DO on 05/03/2022 11:38 AM Ally Monsivais BILINGUAL TEACHER ASSISTANT-FRONT END WEB DEVELOPER DEXA ORDERABLES Final R esult from Last 3 Months or Most Recently Relevant to Health Maintenance Insurance MEDICARE A[employer] MEDICARE [facility] SELF PAY NO INSURANCE Member Subscriber Plan / Payer (Ef fective for All Dates) Name:Sindy Javier Member ID:Not on file Relation to Subscriber:Not on file Name:SINDY JAVIER Subscriber ID:Not on file (Home) Address: [address] [place] [phone] Payer ID:Not on file Group ID:Not on file Type:Self Pay Address: [place], [place] [facility] MEDICARE ADV Care Teams Front Office Clerk Relationship Specialty Start Date End Date Aamir Mishra MD [address] [place] [address] PCP - General Family Medicine 05/03/22
--- OUTSIDE RECORDS SUMMARY | 2025-10-29 15:31 | XMS_ITS | Encounter Summary ---
Author Organization [facility] Address [address] [place] [address] Care Team Providers Care High School Football Coach Name Role Phone Aamir Mishra MD Primary Care Provider Encounter Details Date Type Department Care Team (Late st Contact Info) Description 06/02/2022 Lab Requisition [facility] DermPath Lab [address] [facility] [place] [address] Ben Garland MD [address] [facility] [place] [address] Social History Tobacco Use Types Packs/Day Years Used Date Smoking Tobacco: Former Cigarettes 0.5 10 Smokeless Tobacco: Never Comments:Passive smoke expos ure from mother as well Comments No Sex and Gender Information Value Date Recorded Sex Assigned at Not on file Legal Sex Female 5:56 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 Lentigo Maligna. Path# [id number] B: BCCA. Path# [id number] 2 5:05 PM CDT DERMATOPATHOLOGY LABORATORY Gross Description Specimen A: Received is one formalin filled container labeled with the patient's name and designated right upper back. The specimen consists of a shave biopsy measuring [id number] and another piece of tissue measuring [id number]. Jar 0. Specimen B: Received is one formalin filled container labeled with the patient's name and designated right posterior shoulder. The specimen consists of a shave biopsy measuring 5x0i6za. Jar 0. 2 5:05 PM CDT DERMATOPATHOLOGY [...] characteristic determined by the Dermatopathology Laboratory at [facility], directed by Dr. Konrad Chandler. These tests need not be, and therefore are not, approved by the [place] Food and Drug Administration. The tests are used for clinical purposes. Billing Codes Specimen Charges Stain Charges 68202 69584 1 1 06069 1 2 5:05 PM CDT DERMATOPATHOLOGY LABORATORY Embedded Images 2 5:05 PM CDT DERMATOPATHOLOGY LABORATORY Pathology/Cytology TISSUE SPECIMEN FROM SKIN / Unknown 06/01/2022 06/02/2022 8:39 AM CDT Miscellaneous samples (specimen) TISSUE SPECIMEN FROM SKIN / Unknown 06/01/2022 06/02/2022 8:39 AM CDT us Ben Garland MD LAB - PATHOLOGY/CYTOLOGY ORDER AMY Final Result DERMATOPATHOLOGY LABORATORY [facility] - Department of Dermatology [facility] Medicine [address] [place] [address], [address] [phone] documented in this encounter Visit Diagnoses Not on filedocumented in this encounter Care Teams High School Football Coach Relationship Specialty Start Date End Date Aamir Mishra MD [address] [place] [address] PCP - General Family Medicine 05/03/22 documented as of this encounter
--- OUTSIDE RECORDS SUMMARY | 2025-10-29 15:31 | XMS_ITS | Data Portability ---
Author Organization [facility], Main Office Address [address] [place] [address] Assessment Encounter Date Assessment Date Assessment LastModified [...] Orders Celebrex 200 mg capsule 2022 023 z[address] [facility], [address] [facility], [place], [address], 13:53:27 Patient TargetsNo targets recorded. Patient InstructionsNo instructions recorded. Reason for Referral None Reported. Results Created Date Observation Date Name Description Value Unit Range Abnormal Flag Note LastModifiedBy Organization Detail LastModifiedTime 11/29/19 22 XR, hand, 3 or more view No observ ation record ed. [id number] [employer] [address], [place], [address], 01/10/2023 10:51:42 Result Notes None recorded. Problems Name Problem SNOMED Code Status Onset Date Resolution Date Notes Provider Name and Address Organization Details Recorded Time Partial thickness rotator cuff tear 364005223 Active 2019 Not Available [facility] 3 10:45:13 Trigger finger of right hand 6338705314638 9101 Active 2021 Not Available [facility] 3 10:45:13 Osteoarthr itis of joint of hand 38574645 Active 2021 Not Available [facility] 3 10:45:13 Pain of right hand 7390706170504 09 Active 2021 Not Available [facility] 3 10:45:13 Acquired trigger finger of left middle finger 6896273382306 02 Active 2021 Not Available [facility] 3 10:45:13 Acquired trigger finger of right middle finger 8329569153904 05 Active 2021 Not Available [facility] 3 10:45:13 Problem Notes None recorded. Medical [...] administe red by the provider 12/07 completed [facility]: 0003- [phone]- [phone] Not Available Not [...] administe red by the provider 12/07 completed [facility]: [phone] Not Available Not [...] Updated DateTime 11/29/2021 25.4 kg/m2 170.18 cm 51140.96 g Not Available [facility] 01/10/2023 10:42:50 Date Recorded Body mass index (BMI) Body height Body weight Provider Name and Address Organization Details Last Updated DateTime 12/07/2022 25.1 kg/m2 170.18 cm 30197.78 g Not Available [facility] 01/10/2023 10:42:50 Date Recorded Body mass index (BMI) Body height Body weight Provider Name and Address Organization Details Last Updated DateTime 12/21/2022 25.1 kg/m2 170.18 cm 42852.78 g Not Available [facility] 01/10/2023 10:42:50 Date Recorded Body height Body mass index (BMI) Body weight Provider Name and Address Organization Details Last Updated DateTime 01/11/2023 170.18 cm 25.1 kg/m2 28292.78 g Lisa Alvarez, ATC L [place] [facility] 01/11/2023 13:35:05 Date Recorded Body mass index (BMI) Body height Body weight Provider Name and Address Organization Details Last Updated DateTime 05/25/2022 25.7 kg/m2 170.18 cm 82488.15 g Not Available [facility] 01/10/2023 10:42:50 Social History None recorded. Functional Status None recorded. Mental Status None recorded. Family History Relationship Description Onset Age of this Age Resolved Age Notes LastModified by Organization Details LastModified Time Father Family history of malignant neoplasm [id number] Not available 01/10/2023 10:42:15 Mother Chronic obstructive pulmonary disease [id number] Not available 01/10/2023 10:42:15 Medical History Condition Response BLINDNESS N KIDNEY STONES N MRSA N CARPAL TUNNEL SYNDROME N LUNG DISEASE/DISORDER N HISTORY OF DRUG ABUSE N RADIATION / CHEMOTHERAPY N COPD N SPORTS INJURY N ANKLE PAIN N BLOOD DISEASES N SCHIZOPHRENIA N SHINGLES N SHOULDER PAIN N BOWEL PROBLEMS N DEPRESSION (INCLUDING POST ) N STROKE/TIA N ULCERS N KNEE PAIN [...] HAVE YOU BEEN HOSPITALIZED OR SEEN IN [facility] IN THE PAST YEAR ? [...] ICD10 Code Diagnosis IMO Codes Diagnosis Note [id number] Nasir Romero MD [facility] [employer] [address] [facility] [address] [place] [address] 10/18/2021 00:00:00 10/18/2021 15:10:00 [id number] Nasir Romero MD [place] [employer] [address] [place] [address] 11/29/2021 00:00:00 11/29/2021 16:13:19 [id number] Nasir Romero MD [facility] [employer] [address] [place] [address] 05/25/2022 00:00:00 05/25/2022 14:03:45 [id number] Nasir Romero MD [facility] [employer] [address] [place] [address] 12/07/2022 00:00:00 12/07/2022 11:22:16 [id number] Nasir Romero MD [facility] [employer] [address] [place] [address] 12/21/2022 00:00:00 12/21/2022 11:30:44 [id number] Nasir Romero MD [facility] [employer] [address] [place] [address] 01/11/2023 13:30:04 01/11/2023 15:06:56 Trigger finger of right hand [id number] [id number] M65.332 Pain of right hand 01477 79555 25962 M79.641 Acquired t clerk rating finger of left middle finger 9613256746 72950 M65.332 Acquired t clerk rating finger of right middle finger 0087812962 87761 M65.331 Osteoarthr itis of joint of hand 76128572 M19.049 Health Concerns Section Related Observation LastModified by Organization Detai ls LastModified Time None Recorded Concern Status LastModified by Organization Details LastModified Time None Recorded Advance Directives Directive None Recorded Payers Insurance Date Sequence Insurance Name Policy Number Policy Cohen Covered Member ID Cohen Member ID Guarantor Name 01/16/2023 1 [employer] (MEDICARE REPLACEMENT/ ADVANTAGE - PPO) [id number] Sindy L Fourdyce [id number] Sindy L Fourdyce 01/16/2023 1 [employer] (PPO) [id number] Sindy L Fourdyce [id number] Sindy L Fourdyce Notes Date Note Type Note Provider Name and Address Organization Details Recorded Time 01/11/2023 text/html Patient returns status post trigger finger left base left 3rd. She remains symptomatic in terms of scarring and inflammation but no triggering and no numbness or tingling. Nasir Romero MD [address] [place] [address], [place], [address], [facility] 01/11/2023 13:54:42 OBGyn Episode No OBEpisode recorded.
--- OUTSIDE RECORDS SUMMARY | 2025-10-29 15:31 | XMS_ITS | Clinical Summary ---
Author Organization [facility] Address [facility] [place] [address] Care Team Providers Care Special Agent In Charge Name Role Phone Unavailable Primary Care Provider [...]
--- OUTSIDE RECORDS SUMMARY | 2025-10-29 15:31 | XMS_ITS | Clinical Summary ---
Author Organization [facility] Administrative Offices Address [address] [place] [address] Care Team Providers Care Circuit Breaker Assembler Name Role Phone Bekah Delgado MD Primary Care Provider + Allergies No known active allergies Medications atorvastatin (LIPITOR) 40 mg tablet Take 40 mg by mouth daily. Active ezetimibe (ZETIA) 10 mg tablet Take 10 mg by mouth daily. Active metoprolol succinate (TOPROL XL) 25 mg Extended Release 24 hour tablet Take 25 mg by mouth daily in the morning. Active omeprazole (PriLOSEC) 20 mg Capsule, Delayed Release(E.C.) Take 20 mg by mouth daily. Active tamoxifen (NOLVADEX) 20 mg tablet Take 1 Tablet (20 mg) by mouth daily. 90 Tablet 2 10/29/2025 Active Active Problems No known active problems Encounters Date Type Department Care Team Description 10/29/2025 1:30 PM POND [facility]WYER Office Visit [facility] Oncology and Hematology - Nick [address] [place] [id number] Sekou Boyle MD Ductal carcinoma in situ (DCIS) of right breast (Primary Dx) from Last 3 Months Family History Medical History Relation Name Comments No Known Problems Brother No Known Problems Child Pancreatic Cancer Father No Known Problems Mother No Known Problems Sister 1 No Known Problems Sister 2 Relation Name Status Comments Brother Alive Child Alive Father Mother Sister 1 Alive Sister 2 Alive Social History Tobacco Use Types Packs/Day Years Used Date Smoking Tobacco: Former Cigarettes 1 8 1 12/30/1971 - 10/29/1980 Smokeless Tobacco: Never Alcohol Use Standard Drinks/Week Comments Yes 0 (1 standard drink = 0.6 oz pur e alcohol) 2 glass on wine daily Comments Unknown Sex and Gender Information Value Date Recorded Sex Assigned at Not on file Legal Sex Female 5:40 AM POND SAWYER Gender Identity Not on file Sexual Orientation Not on file Last Filed Vital Signs Vital Sign Reading Time Taken Comments Blood Pressure 129/73 10/29/2025 1:41 PM POND SAWYER Pulse 62 10/29/2025 1:38 PM POND SAWYER Temperature 36.7 C (98.1 F) 10/29/2025 1:38 PM POND SAWYER Respiratory Rate 15 10/29/2025 1:38 PM POND SAWYER Oxygen Saturation 96% 10/29/2025 1:38 PM POND SAWYER Inhaled Oxygen Concentration - - Weight 77.2 kg (170 lb 3.2 oz) 10/29/2025 1:38 P M POND SAWYER Height 170.2 cm (5' 7) 10/29/2025 1:38 PM POND SAWYER Body Mass Index 26.66 10/29/2025 1:38 PM POND SAWYER Plan of Treatment Upcoming Encounters Date Type Department Care Team (Late st Contact Info) Description 11/03/2025 4:00 PM POND SAWYER Telephone Check Up [facility] Oncology and Hematology - [address] [place] [address] Vamshi Fonseca MD [address] [address] 02/16/2026 11:15 AM CDT Office Visit [facility] Oncology and Hematology - [address] [place] [address] Sekou Boyle MD [address] [facility] [address] [place] [address] Health Maintenance Due Date Last Done Comments DTAP/TDAP/TD VACCINES (1 - Tdap) 1968 PNEUMOCOCCAL VACCINE 50+ YEA RS (1 of 1 - PCV) 1999 ZOSTER VACCINE (1 of 2) 1999 RSV VACCINE (60+ or ) (1 - 1-dose 75+ series) 2024 Medicare Advantage ([place]) Prev entative Visit/Annual Wellness Visit 11/12/2024 INFLUENZA VACCINE (#1) 2025 OSTEOPOROSIS SCREENING 05/03/2027 2, 05/03/2022, 01/17/2019 Insurance [employer] PPO MCR Care Teams Circuit Breaker Assembler Relationship Specialty Start Date End Date Bekah Delgado MD PCP - General 11/04/08
[2025-10-29 16:38] LABS: Alanine Aminotransferase 32 U/L (6-35); Albumin Level 4.2 g/dL (3.5-5.1); Alkaline Phosphatase 67 U/L (38-126); Anion Gap 5 mmol/L (4-12); Aspartate Amino Transferase 66 U/L (14-36); Bilirubin,Total 0.5 mg/dL (0.2-1.3); Blood Urea Nitrogen 24 mg/dL (7-17); Calcium 8.9 mg/dL (8.4-10.2); Carbon Dioxide 28 mmol/L (22-30); Chloride 107 mmol/L (98-107); Estimated Glomerular Filt Rate > 60; Glucose 97 mg/dL (65-110); Potassium 4.3 mmol/L (3.4-5.0); Sodium 140 mmol/L (137-145); Total Protein 7.4 g/dL (6.3-8.2)
== END 2025-10-29 14:29 | disposition home or self-care (01) ==
LOC: ANHLAB 14:28
PROVIDERS: PCP Family Medicine; Visit Provider Internal Medicine Hematology & Oncology
DX: D05.11 Intraductal carcinoma in situ of right breast (principal)
CPT/HCPCS: 36415; 80053; 85025